=== PATIENT | female | born 1955 | race African-American/Black ===

== ENCOUNTER → 2017-08-05 | Outpatient (CLI) | payer OTHER ==
--- NOTE | 2017-08-05 15:59 | WOMENS IMAGING REPORT ---
EXAM DESCRIPTION: BILAT SCREENING MAMMO W/CAD COMPLETED DATE/TIME: 08/05/2017 1:59 pm REASON FOR STUDY: ROUTINE SCREENING; Z12.31 Z12.31 ENCNTR SCREEN MAMMOGRAM FOR MALIGNANT NEOPLASM O F SUMAN[place] COMPARISON: 04/12/2016 TECHNIQUE: Standard craniocaudal and mediolateral oblique views of each breast recorded using Ininala l acquisition. LIMITATIONS: None. FINDINGS: Findings present which are benign by mammographic criteria. No suspicious masses, calcifi cations or architectural distortion. Pertinent benign findings: Benign skin and breast parenchymal calcifications of the right Read with the assistance of CAD. .[facility] - R2 Cenova Version 1.3 .[facility] Imaging - R2 Cenova Version 1.3 .[facility] Imaging - R2 Cenova Version 2.4 .[facility] [place] - R2 Cenova Version 2.4 .[facility] - R2 [employer] Version 9.2 Benign mammographic findings may include one or more of the following: Smooth masses, popcorn/rim/co arse calcifications, asymmetries, post-procedure changes, and lesions with long-standing stability. IMPRESSION: BENIGN MAMMOGRAPHIC FINDINGS. BIRADS 2 BREAST DENSITY: b. There are scattered areas of fibroglandular density. BIRAD: 2 BENIGN FINDING(S) RECOMMENDATION: ROUTINE SCREENING Please consider bilateral screening tomosynthesis in July 2018 COMMENT: The patient has been notified of the results by letter per SA requirements. Additional no tification policies are in place for contacting patient with suspicious or incomplete findings. Quality ID #[id number]: The [employer] [place] [employer] recommends an annual screening mammogram for women aged 40 years or over. This facility utilizes a reminder system to ensure that all patients receive reminder letters, and/or direct phone calls for appointments. This includes reminders for routine scr eening mammograms, diagnostic mammograms, or other Breast Imaging Interventions when appropriate. Th is patient will be placed in the appropriate reminder system. The [place] [employer] (ACR) has developed recommendations for screening MRI of the breast s in certain patient populations, to be used in conjunction with mammography. Breast MRI surveillanc e may be appropriate for women with more than 20% lifetime risk of developing breast cancer as deter mined by genetic testing, significant family history of the disease, or history of mantle radiation f or Hodgkins Disease. ACR Practice Guidelines 2008. TECHNICAL DOCUMENTATION: FINDING NUMBER: (1) ASSESSMENT: (1) JOB ID: [id number] [employer]- All Rights Reserved
== END ==
LOC: WI 13:10
PROVIDERS: ATTEND Clinical Nurse Specialist Adult Health
DX: Z12.31 Encounter for screening mammogram for malignant neoplasm of breast (principal)
CPT/HCPCS: 77067

== ENCOUNTER 2017-09-13 08:51 | Inpatient (IN) | payer OTHER, MEDICARE ==
[2017-09-13] MEDS ORDERED: NORMAL SALINE 1000 ML 1,000 ML IV ONE ×2 (09:40→10:48)
[2017-09-13] MEDS ORDERED: PIPERACILLIN/TAZOBACTAM 4.5 GM VIAL IV ONE (09:40)
--- NOTE | 2017-09-13 09:50 | ER Document Report ---
ED Medical Screen (RME) - General Chief Complaint: Chest Pain Stated Complaint: CHEST PAIN, SHORTNESS OF BREATH Time Seen by Provider: 09/13/17 09:40 Notes: Patient states that she started with a toothache on Wednesday and this has now caused her to have swelling of her lips and tongue. She states she is having some trouble breathing. She also feels nauseated and has a mild cough. She states that her tongue lips and mouth are very sore. TRAVEL OUTSIDE OF THE [place] IN LAST 30 DAYS: No - Related Data Allergies/Adverse Reactions: Sulfa (Sulfonamide Antibiotics) Allergy (Unknown, Verified 09/13/17 08:52) peach [[place]] Adverse Reaction (Verified 09/13/17 08:52) RASH Past Medical History - Social History Frequency of alcohol use: None Drug Abuse: None - Past Medical History Cardiac Medical History: Reports: Hx Hypercholesterolemia, Hx Hypertension Endocrine Medical History: Reports: Hx Diabetes Mellitus Type 2 Renal/ Medical History: Denies: Hx Peritoneal Dialysis Musculoskeltal Medical History: Reports Hx Arthritis Past Surgical History: Reports: Hx Hysterectomy - partial. Denies: Hx Pacemaker - Immunizations Hx Diphtheria, Pertussis, Tetanus Vaccination: No Physical Exam - Vital signs Vitals: Temp Pulse Resp BP Pulse Ox 100.1 F 106 H 20 141/94 H 92 09/13/17 09:08 09/13/17 09:08 09/13/17 09:08 09/13/17 09:08 09/13/17 09:08 Course - Vital Signs Vital signs: Temp Pulse Resp BP Pulse Ox 100.1 F 106 H 20 141/94 H 92 09/13/17 09:08 09/13/17 09:08 09/13/17 09:08 09/13/17 09:08 09/13/17 09:08
[2017-09-13 10:17] LABS: ABSOLUTE BASOPHILS # (AUTO) 0.1 10^3/uL (0.0-0.2); ABSOLUTE LYMPHOCYTES (AUTO) 1.7 10^3/uL (0.5-4.7); ABSOLUTE MONOCYTES (AUTO) 0.6 10^3/uL (0.1-1.4); ABSOLUTE NEUT (AUTO) 8.1 10^3/uL (1.7-8.2); BASOPHILS % (AUTO) 0.8 % (0-2); EOSINOPHILS % (AUTO) 0.3 % (0-6); HEMATOCRIT 39.3 % (36.0-47.0); HEMOGLOBIN 12.1 g/dL (12.0-15.5); LYMPHOCYTES % (AUTO) 15.9 % (13-45); MEAN CORPUSCULAR HEMOGLOBIN 22.2 pg (27.0-33.4); MEAN CORPUSCULAR HGB CONC 30.8 g/dL (32.0-36.0); MEAN CORPUSCULAR VOLUME 72 fl (80-97); MONOCYTES % (AUTO) 5.6 % (3-13); PLATELET COUNT 251 10^3/uL (150-450); RED BLOOD COUNT 5.46 10^6/uL (3.72-5.28); RED CELL DISTRIBUTION WIDTH 14.8 % (11.5-14.0); SEGMENTED NEUTROPHILS % (AUTO) 77.4 % (42-78); TOTAL CELLS COUNTED % (AUTO) 100 %; WHITE BLOOD COUNT 10.4 10^3/uL (4.0-10.5)
[2017-09-13 10:18] LABS: VENOUS BLOOD BASE EXCESS 6.8 mmol/L; VENOUS BLOOD HCO3 33.3 mmol/L (20-32); VENOUS BLOOD PCO2 55.6 mmHg (35-63); VENOUS BLOOD PH 7.4 (7.30-7.42)
--- NOTE | 2017-09-13 10:25 | RADIOLOGY REPORT (SQ) ---
EXAM DESCRIPTION: CHEST SINGLE VIEW COMPLETED DATE/TIME: 09/13/2017 10:09 am REASON FOR STUDY: cough/fever COMPARISON: 05/22/2016 EXAM PARAMETERS: NUMBER OF VIEWS: One view. TECHNIQUE: Single frontal radiographic view of the chest acquired. RADIATION DOSE: NA LIMITATIONS: None. FINDINGS: LUNGS AND PLEURA: No opacities, masses or pneumothorax. No pleural effusion. MEDIASTINUM AND HILAR STRUCTURES: No masses. Contour normal. HEART AND VASCULAR STRUCTURES: Heart normal in size. Normal vasculature. BONES: No acute findings. HARDWARE: None in the chest. OTHER: No other significant finding. IMPRESSION: NO ACUTE RADIOGRAPHIC FINDING IN THE CHEST. TECHNICAL DOCUMENTATION: JOB ID: [id number] [employer]- All Rights Reserved
[2017-09-13 10:42] LABS: ALANINE AMINOTRANSFERASE 21 U/L (9-52); ALBUMIN 4.2 g/dL (3.5-5.0); ALKALINE PHOSPHATASE 105 U/L (38-126); ANION GAP 9 (5-19); ASPARTATE AMINO TRANSFERASE 12 U/L (14-36); BILIRUBIN,DIRECT 0.4 mg/dL (0.0-0.4); BILIRUBIN,TOTAL 0.4 mg/dL (0.2-1.3); BLOOD UREA NITROGEN 6 mg/dL (7-20); CALCIUM 9.8 mg/dL (8.4-10.2); CARBON DIOXIDE 31 mmol/L (22-30); CHLORIDE 99 mmol/L (98-107); GLUCOSE 141 mg/dL (75-110); POTASSIUM 3.6 mmol/L (3.6-5.0); SODIUM 138.9 mmol/L (137-145); TOTAL PROTEIN 7.5 g/dL (6.3-8.2)
--- NOTE | 2017-09-13 10:46 | ER Document Report ---
ED General - General Mode of Arrival: Ambulatory Information source: Patient TRAVEL OUTSIDE OF THE [place] IN LAST 30 DAYS: No <MUNIR AMBRIZ - Last Filed: 09/13/17 13:31> <RADHA LEIVA - Last Filed: 09/14/17 09:30> - General Chief Complaint: Chest Pain Stated Complaint: CHEST PAIN, SHORTNESS OF BREATH Time Seen by Provider: 09/13/17 09:40 Notes: Patient is a 62 year old female with a history of migraines and diabetes presents to the emergency department complaining of multiple symptoms including chest pain and shortness of breath onset this morning, swelling to her face, blurry vision, headaches, nausea, and vomiting onset 3 days ago. Patient states she woke up this morning with non radiating chest pain on the left side. Patient states the pain is intermittent and describes it as a squeezing. Patient states her swelling and other symptoms was onset 3 days ago due to a toothache but has since worsened. Patient states she is unable to swallow like normal and was unable to take any Tylenol for her migraines this morning. Patient denies any hematemesis or a history of [place], or strokes. Patient states she takes Metformin for her diabetes. (MUNIR AMBRIZ) - Related Data Allergies/Adverse Reactions: Sulfa (Sulfonamide Antibiotics) Allergy (Unknown, Verified 09/13/17 08:52) peach [[place]] Adverse Reaction (Verified 09/13/17 08:52) RASH Past Medical History - General Information source: Patient - Social History Smoking Status: Never Smoker Frequency of alcohol use: None Drug Abuse: None Family History: Reviewed & Not Pertinent Patient has suicidal ideation: No Patient has homicidal ideation: No - Past Medical History Cardiac Medical History: Reports: Hx Hypercholesterolemia, Hx Hypertension Endocrine Medical History: Reports: Hx Diabetes Mellitus Type 2 Musculoskeltal Medical History: Reports Hx Arthritis Past Surgical History: Reports: Hx Hysterectomy - Immunizations Hx Diphtheria, Pertussis, Tetanus Vaccination: No Hx Pneumococcal Vaccination: 07/26/10 <MUNIR AMBRIZ - Last Filed: 09/13/17 13:31> Review of Systems - Review of Systems Constitutional: No symptoms reported EENT: See HPI Cardiovascular: See HPI, Chest pain Respiratory: See HPI, Short of breath Gastrointestinal: No symptoms reported Genitourinary: No symptoms reported Female Genitourinary: No symptoms reported Musculoskeletal: See HPI Skin: No symptoms reported Hematologic/Lymphatic: No symptoms reported Neurological/Psychological: No symptoms reported -: Yes All other systems reviewed and negative <MUNIR AMBRIZ - Last Filed: 09/13/17 13:31> Physical Exam - General General appearance: Appears well, Alert In distress: None - HEENT Head: Normocephalic Eyes: Normal Conjunctiva: Normal Pupils: PERRL Mouth/Lips: Other - Trismus. Tenderness to palpation to right submandibular area. Soft tissue swelling in the buccal area. Poor dentition. Mucous membranes: Moist Pharynx: Normal Neck: Lymphadenopathy - Respiratory Respiratory status: No respiratory distress Chest status: Nontender Breath sounds: Normal Chest palpation: Normal - Cardiovascular Rhythm: Tachycardia Heart sounds: Normal auscultation Murmur: No Friction rub: No Gallop: None auscultated - Abdominal Inspection: Normal Distension: No distension Bowel sounds: Normal Tenderness: Nontender Organomegaly: No organomegaly - Back Back: Normal - Extremities General upper extremity: Normal inspection, Normal ROM General lower extremity: Normal inspection, Normal ROM - Neurological Neuro grossly intact: Yes Cognition: Normal Orientation: AAOx4 [place] Coma Scale Eye Opening: Spontaneous [place] Coma Scale Verbal: Oriented [place] Coma Scale Motor: Obeys Commands [place] Coma Scale Total: 15 Speech: Normal - Psychological Associated symptoms: Normal affect, Normal mood - Skin Skin Temperature: Warm Skin Moisture: Dry Skin Color: Normal <MUNIR AMBRIZ - Last Filed: 09/13/17 13:31> - Vital signs Vitals: Temp Pulse Resp BP Pulse Ox 100.1 F 106 H 20 141/94 H 92 09/13/17 09:08 09/13/17 09:08 09/13/17 09:08 09/13/17 09:08 09/13/17 09:08 Course - Laboratory Result Diagrams: 09/13/17 09:55 09/13/17 09:55 - EKG Interpretation by De EKG shows normal: Sinus rhythm Rate: Tachycardia - 102 - Consults Dr. Burns Time consulted: 01:30 - Dr. Burns accepts patient to Med- Surg. <PBMUNIR - Last Filed: 09/13/17 13:31> - Laboratory Result Diagrams: 09/14/17 06:15 09/14/17 06:15 <RADHA LEIVA - Last Filed: 09/14/17 09:30> - Vital Signs Vital signs: Temp Pulse Resp BP Pulse Ox 98.4 F 79 18 132/56 H 94 09/14/17 07:32 09/14/17 07:32 09/14/17 07:32 09/14/17 07:32 09/14/17 07:32 - Laboratory Laboratory results interpreted by me: 09/13/17 09/13/17 09/13/17 09:55 09:55 09:55 RBC 5.46 H MCV 72 L MCH 22.2 L MCHC 30.8 L RDW 14.8 H VBG HCO3 33.3 H Carbon Dioxide 31 H BUN 6 L Glucose 141 H AST 12 L - EKG Interpretation by Me Additional EKG results interpreted by me: 09/13/17 11:00 Sinus Tachycardia, normal axis, normal interval, no concerning ST, depression relevant. (MUNIR AMBRIZ) Discharge - Discharge Unit Admitted: Medical Floor <MUNIR AMBRIZ - Last Filed: 09/13/17 13:31> - Discharge Admitting Provider: Delmis <RADHA LEIVA - Last Filed: 09/14/17 09:30> - Discharge Clinical Impression: Soft tissue swelling Diabetes Qualifiers: Diabetes mellitus type: type 2 Condition: Stable Disposition: ADMITTED INPATIENT Scribe Attestation: 09/14/17 09:30 I personally performed the services described documentation, reviewed and edited the documentation which was dictated to describe my presence, and it accurately records my words and actions. (RADHA LEIVA) Scribe Documentation - Scribe Written by Chaime:: Torito Joyner, 09/13/2017 10:55 acting as scribe for :: Clint <MUNIR AMBRIZ - Last Filed: 09/13/17 13:31>
[2017-09-13] MEDS ORDERED: ONDANSETRON HCL INJ/PF 4 MG/2 ML SDV IV ONE (10:47)
[2017-09-13] MEDS ORDERED: MORPHINE SULFATE 10 MG/ML INJ IV ONE (10:47)
[2017-09-13] MEDS ORDERED: VANCOMYCIN HCL INJ 1000 MG VIAL IV ONE (11:09)
[2017-09-13] MEDS ORDERED: HYDROMORPHONE HCL INJ/PF 2 MG/ML AMPULE IV ONE (11:24)
--- NOTE | 2017-09-13 12:59 | RADIOLOGY REPORT (SQ) ---
EXAM DESCRIPTION: CT CHEST WITH COMPLETED DATE/TIME: 09/13/2017 12:27 pm REASON FOR STUDY: CP with facial infection, r/o mediastinal infectio COMPARISON: None. TECHNIQUE: CT scan of the chest performed using helical scanning technique with dynamic intravenous contrast injection. Images reviewed with lung, soft tissue and bone windows. Reconstructed coronal and sagittal MPR images reviewed. All images stored on PACS. All CT scanners at this facility use dose modulation, iterative reconstruction, and/or weight based d osing when appropriate to reduce radiation dose to as low as reasonably achievable (ALARA). [facility]: Dose Right [facility]: CareDose [facility]: Dose Right [facility]: Teradose 4D [facility]: [employer] CONTRAST TYPE AND DOSE: contrast/concentration: Isovue 370.00 mg/ml; Total Contrast Delivered: 80.0 ml; Total Saline Delivered: 55.0 ml RENAL FUNCTION: Creatinine: 0.6 RADIATION DOSE: 1663.4 LIMITATIONS: None. FINDINGS: LUNGS AND PLEURA: No infiltrates or effusions. No pneumothorax. HILAR AND MEDIASTINAL STRUCTURES: Small pretracheal node. No adenopathy. HEART AND VASCULAR STRUCTURES: No aneurysm or dissection. No central pulmonary emboli. No pericardi al effusion. HARDWARE: None in the chest. UPPER ABDOMEN: Image degradation due to artifact. Left adrenal calcification. THYROID AND OTHER SOFT TISSUES: No abnormality seen. BONES: No abnormality seen. . OTHER: No other significant finding. IMPRESSION: NORMAL CT OF THE CHEST WITH IV CONTRAST. TECHNICAL DOCUMENTATION: JOB ID: [id number] Quality ID # [id number]: Final reports with documentation of one or more dose reduction techniques (e.g., Au tomated exposure control, adjustment of the mA and/or kV according to patient size, use of iterative reconstruction technique) 2010 [employer]- All Rights Reserved
--- NOTE | 2017-09-13 13:10 | RADIOLOGY REPORT (SQ) ---
EXAM DESCRIPTION: CT SOFT TISSUE NECK WITH COMPLETED DATE/TIME: 09/13/2017 12:27 pm REASON FOR STUDY: face and neck swelling COMPARISON: None. TECHNIQUE: Post IV contrasted scanning from skull base through lung apices with review of bone, soft tissue and lung windows. Reconstructed coronal and sagittal MPR images reviewed. All images stored on PACS. All CT scanners at this facility use dose modulation, iterative reconstruction, and/or weight based d osing when appropriate to reduce radiation dose to as low as reasonably achievable (ALARA). [facility]: Dose Right [facility]: CareDose [facility]: Dose Right [facility]: Teradose 4D [facility]: [employer] CONTRAST TYPE AND DOSE: Isovue 370. 80.2 mL RENAL FUNCTION: Creatinine: 0.57 RADIATION DOSE: CT Rad equipment meets quality standard of care and radiation dose reduction techniq ues were employed. CTDIvol: 16.6 - 30.0 mGy. DLP: 1663 mGy-cm. . LIMITATIONS: None. FINDINGS: SKULL BASE: Intact. MAJOR SALIVARY GLANDS: No abnormality of the parotid gland. No abnormality of the submandibular glan ds. LYMPHADENOPATHY: There are prominent submental nodes the largest measuring 12 mm. Small submandibul ar nodes noted bilaterally MUCOSAL MASSES OR ASYMMETRY: No mucosal masses or asymmetry. LARYNX/CORDS: No abnormal findings. VASCULAR STRUCTURES: Atherosclerotic change distal left common carotid artery. Otherwise, no signifi cant abnormality seen . LUNG APICES: No abnormality seen. BONES: Cervical spondylosis. THYROID: Normal size. No masses. PARANASAL SINUSES: No abnormality of the frontal, ethmoid, maxillary, and sphenoid sinuses. IMPRESSION: NO SIGNIFICANT ABNORMALITY IDENTIFIED. TECHNICAL DOCUMENTATION: JOB ID: [id number] Quality ID # [id number]: Final reports with documentation of one or more dose reduction techniques (e.g., Au tomated exposure control, adjustment of the mA and/or kV according to patient size, use of iterative reconstruction technique) 2010 [employer]- All Rights Reserved
--- NOTE | 2017-09-13 13:26 | EKG REPORT ---
SEVERITY:- BORDERLINE ECG - SINUS TACHYCARDIA BORDERLINE T ABNORMALITIES, ANTERIOR LEADS : Confirmed by: Pramod Gamble MD 13-Sep-2017 13:26:04
[2017-09-13] MEDS ORDERED: ACETAMINOPHEN 325 MG TABLET PO PRN (16:00)
[2017-09-13] MEDS ORDERED: GLUCAGON,HUMAN RECOMB 1 MG INJ SUBCUT PRN (16:00)
[2017-09-13] MEDS ORDERED: DEXTROSE 40% GEL 15 GM TUBE PO PRN ×2 (16:00)
[2017-09-13] MEDS ORDERED: DEXTROSE 50%-WATER 25 GM/50 ML DISP.SYRIN IV PRN ×2 (16:00)
[2017-09-13] MEDS ORDERED: INSULIN REG, HUMAN 100 UNIT/ML 3 ML VIAL (PYX) SUBCUT PRN (16:08)
[2017-09-13 17:02] LABS: APPEARANCE,URINE SLIGHTLY-CLOUDY; BILIRUBIN,URINE NEGATIVE (NEGATIVE); COLOR,URINE YELLOW; GLUCOSE, URINE NEGATIVE (NEGATIVE); KETONES,URINE NEGATIVE (NEGATIVE); LEUKOCYTE ESTERASE,URINE TRACE (NEGATIVE); NITRITE,URINE NEGATIVE (NEGATIVE); PROTEIN,URINE NEGATIVE (NEGATIVE); URINE SPECIFIC GRAVITY 1.049; UROBILINOGEN,URINE NEGATIVE mg/dL (<2.0)
[2017-09-13] MEDS: HYDROCHLOROTHIAZIDE 25 MG TABLET PO SCH (18:57)
--- NOTE | 2017-09-13 20:00 | PDOC H&P ---
History of Present Illness Admission Date/PCP: 09/13/17 14:37 DAVID MUNOZ MD Patient complains of: Swollen right face History of Present Illness: TEVIN BROWN is a 62 year old -[place]ian female with a past medical history significant for diabetes mellitus, hypertension who presents to the service with complaints of right-sided facial swelling. According to the patient her symptoms started on Wednesday when she awoke from sleep. She states at that time she had some chest pain that felt like it was sharp and she noticed also that she had some swelling beginning in her right neck and face. She also noted that her throat and tongue felt swollen and had a sensation of shortness of breath. The patient reports feeling nauseous this morning just before coming into the ER. She admits that she had a tooth break off a few days ago. However, she did not think anything of it. She admits to having several rotten teeth and reports exquisite pain in her mouth. She is only been able to consume ice chips down in the emergency room. She reports subjective fever and chills at home. She has not been able to take any of her medications by mouth for fear of choking. She describes her chest pain as sharp. In the emergency room the patient did have a troponin which was negative. EKG had no acute changes. CT scan of the chest was done which was negative for any acute PE. Patient also had a CT scan of the neck soft tissues which did not show any abscess. The emergency room started her on empiric Zosyn and vancomycin. Past Medical History Cardiac Medical History: Reports: Hyperlipidema, Hypertension Neurological Medical History: Reports: Migraine Endocrine Medical History: Reports: Diabetes Mellitus Type 2 Musculoskeltal Medical History: Reports: Arthritis Past Surgical History Past Surgical History: Reports: Hysterectomy Social History Information Source: Patient Smoking Status: Former Smoker Cigarettes Packs Per Day: 0.5 Frequency of Alcohol Use: Rare Hx Recreational Drug Use: No Drugs: None Hx Prescription Drug Abuse: No Past Social History Note: The patient is a former smoker. She quit in 1999. Prior to this she began smoking at the age of 18. During times of she for fitted smoking but then resumed thereafter. He drinks alcohol once a month and denies any illegal drug use. - Advance Directive Resuscitation Status: Full Code Family History Family History: DM, Hypertension Parental Family History Reviewed: Yes Children Family History Reviewed: Yes Sibling(s) Family History Reviewed.: Yes Medication/Allergy Home Medications: Acetaminophen [Tylenol Extra Strength 500 mg Tablet] 500 mg PO Q6 PRN 09/13/17 Ascorbic Acid [Vitamin C 500 mg Tablet] 500 mg PO BID 09/13/17 Aspirin [Aspirin EC] 81 mg PO DAILY 09/13/17 Ferrous Sulfate [Feosol 325 mg Tablet] 325 mg PO DAILY 09/13/17 Hydrochlorothiazide [Hydrodiuril 25 mg Tablet] 25 mg PO TID 09/13/17 Lisinopril [Prinivil 40 mg Tablet] 80 mg PO DAILY 09/13/17 Metformin HCl [Glucophage 500 mg Tablet] 500 mg PO BID 09/13/17 Methocarbamol [Robaxin 500 mg Tablet] 500 mg PO QID 09/13/17 Allergies/Adverse Reactions: Sulfa (Sulfonamide Antibiotics) Allergy (Unknown, Verified 09/13/17 08:52) peach [[place]] Adverse Reaction (Verified 09/13/17 08:52) RASH Review of Systems Review of Systems: Review of systems is pertinent for that already mentioned in the HPI. In addition to this, the patient admits to arthritic pains in her hands and left knee. She also complains of chest discomfort as described in the HPI, lightheadedness and dizziness. She denies any blood in the urine, blood in the stool, coughing up blood, throwing up blood. She denies any dysuria. She denies any diarrhea or constipation, cold or heat intolerance or unintentional weight loss. The patient states that she does not ambulate. She usually gets around by wheelchair. Physical Exam Vital Signs: Temp Pulse Resp BP Pulse Ox 100.1 F 106 H 18 138/81 H 89 L 09/13/17 09:08 09/13/17 09:08 09/13/17 18:00 09/13/17 16:00 09/13/17 18:00 GENERAL: This is a well-developed and nourished appearing obese - Georgian female resting in bed currently in no acute distress. HEENT: Normocephalic, atraumatic. Trachea is midline. Tenderness to palpation of the right upper and lower jaw. Poor dentition. Multiple rotten teeth or fragments of teeth. No obvious abscess or lesions seen on inspection of the mouth. Mellin Suzy 3. Moist mucous membranes. Lip swelling as well as right neck swelling. I do not see obvious swelling of the tongue. HEART: Regular rate and rhythm. No murmurs, rubs or gallops. LUNGS: Clear to auscultation bilaterally with equal rise and fall of the chest. ABDOMEN: Soft, obese, nontender, nondistended with normoactive bowel sounds EXTREMETIES: No clubbing, cyanosis or edema. 2+ peripheral pulses bilaterally. NEURO: Awake, alert and oriented 3. Cranial nerves II through XII are grossly intact. Strength in the lower extremities is 3 out of 5. In the upper extremities is 5 out of 5. Results Laboratory Results: 09/13/17 16:30 Urine Color YELLOW Urine Appearance SLIGHTLY-CLOUDY Urine pH 6.0 Ur Specific Lipan 1.049 Urine Protein NEGATIVE Urine Glucose (UA) NEGATIVE Urine Ketones NEGATIVE Urine Blood NEGATIVE Urine Nitrite NEGATIVE Ur Leukocyte Esterase TRACE H Urine WBC (Auto) 7 Urine RBC (Auto) 4 09/13/17 17:00 Troponin I < 0.012 Impressions: Chest X-Ray 09/13/17 09:40 IMPRESSION: NO ACUTE RADIOGRAPHIC FINDING IN THE CHEST. Soft Tissue Neck CT 09/13/17 10:48 IMPRESSION: NO SIGNIFICANT ABNORMALITY IDENTIFIED. Chest CT 09/13/17 11:05 IMPRESSION: NORMAL CT OF THE CHEST WITH IV CONTRAST. Assessment & Plan - Diagnosis (1) Soft tissue swelling Is this a current diagnosis for this admission?: Yes Plan: She has soft tissue swelling of the neck. My concern is that she has infected. Only one side of her face is affected and that is the side that is tender with the newly broken off tooth. CT scan did not show any catarina abscess. Agree with empiric antibiotics. Oral surgery is on consult today and I will ask them to come by and have a look at the patient. Continue to monitor for any sort of airway restriction. Right now the patient is satting at 100% on room air despite her sense of dyspnea. Allergic reaction certainly remains on the differential. However, the patient has not taken anything new or done anything that she can recall to result in a allergic reaction. Continue to monitor and on Solu-Medrol as appropriate. (2) Hypertension Is this a current diagnosis for this admission?: Yes Plan: Continue home medications. (3) Arthritis Is this a current diagnosis for this admission?: Yes Plan: Tylenol as needed. (4) Dyslipidemia Is this a current diagnosis for this admission?: Yes Plan: The patient is currently being monitored off statins by her PCP. She reports that she was on atorvastatin at one point. (5) Valvular heart disease Is this a current diagnosis for this admission?: Yes Plan: The patient states that she was told that 1 of her valves does not work right but does not have much more information than that. (6) Diabetes Qualifiers: Diabetes mellitus type: type 2 Is this a current diagnosis for this admission?: Yes Plan: Sliding scale insulin, before meals at bedtime blood sugar checks with diabetic diet when appropriate. (7) Chest pain Is this a current diagnosis for this admission?: Yes Plan: Troponins were negative 1. We will check another set now. I do not suspect this to be an acute coronary syndrome. Continue to monitor - Time Time Spent: 50 to 70 Minutes - Inpatient Certification Medical Necessity: Need for IV Antibiotics
[2017-09-14] MEDS: POTASSI CL 20 MEQ/D5-1/2NS 1L 1,000 ML IV PRN ×2 (00:03→15:41)
[2017-09-14 07:00] LABS: ABSOLUTE EOSINOPHILS # (AUTO) 0.1 10^3/uL (0.0-0.6); ABSOLUTE LYMPHOCYTES (AUTO) 2.5 10^3/uL (0.5-4.7); ABSOLUTE MONOCYTES (AUTO) 0.5 10^3/uL (0.1-1.4); ABSOLUTE NEUT (AUTO) 3.6 10^3/uL (1.7-8.2); BASOPHILS % (AUTO) 0.6 % (0-2); HEMATOCRIT 34.9 % (36.0-47.0); HEMOGLOBIN 10.7 g/dL (12.0-15.5); LYMPHOCYTES % (AUTO) 36.4 % (13-45); MEAN CORPUSCULAR HEMOGLOBIN 22.2 pg (27.0-33.4); MEAN CORPUSCULAR HGB CONC 30.6 g/dL (32.0-36.0); MEAN CORPUSCULAR VOLUME 72 fl (80-97); MONOCYTES % (AUTO) 7.8 % (3-13); PLATELET COUNT 206 10^3/uL (150-450); RED BLOOD COUNT 4.83 10^6/uL (3.72-5.28); RED CELL DISTRIBUTION WIDTH 14.7 % (11.5-14.0); SEGMENTED NEUTROPHILS % (AUTO) 53.2 % (42-78); TOTAL CELLS COUNTED % (AUTO) 100 %; WHITE BLOOD COUNT 6.8 10^3/uL (4.0-10.5)
[2017-09-14 07:21] LABS: ANION GAP 8 (5-19); BLOOD UREA NITROGEN 7 mg/dL (7-20); CALCIUM 9.1 mg/dL (8.4-10.2); CARBON DIOXIDE 30 mmol/L (22-30); CHLORIDE 104 mmol/L (98-107); GLUCOSE 107 mg/dL (75-110); POTASSIUM 3.6 mmol/L (3.6-5.0); SODIUM 141.8 mmol/L (137-145)
[2017-09-14] MEDS: ENOXAPARIN SODIUM INJ 40 MG/0.4 ML DISP.SYRIN SUBCUT SCH (09:43)
[2017-09-14] MEDS: ASPIRIN 81 MG TABLET, ENT COATED PO SCH (09:44)
[2017-09-14] MEDS: LISINOPRIL 10 MG TABLET PO SCH (09:44)
[2017-09-14] MEDS: HYDROCHLOROTHIAZIDE 25 MG TABLET PO SCH ×3 (09:44→17:05)
--- NOTE | 2017-09-14 13:01 | PDOC CONSULTATION ---
Consultation Consult Date: 09/14/17 Attending physician:: TED GIVENS Consult reason:: Patient with necrotic tooth # 27 and associated facial/ vestibular swelling. History of Present Illness Admission Date/PCP: 09/13/17 14:37 DAVID MUNOZ MD Patient complains of: Pain and swelling lower right tooth #27 History of Present Illness: Pt complains of pain and swelling in lower jaw and was seem in the ED 09/13/2017 in the evening. Due to the patient's medical history of diabetes and reported chest pain she was admitted for observation and OMFS consultation. Pt presents with swelling and pain from necrotic tooth #27 with positive intra-oral drainage from associated vestibular abscess. Past Medical History Cardiac Medical History: Reports: Hyperlipidema, Hypertension Neurological Medical History: Reports: Migraine Endocrine Medical History: Reports: Diabetes Mellitus Type 2 Musculoskeltal Medical History: Reports: Arthritis Psychiatric Medical History: Denies: Depression Past Surgical History Past Surgical History: Reports: Hysterectomy Denies: Pacemaker Social History Smoking Status: Former Smoker Cigarettes Packs Per Day: 0.5 Number of Years Smokin Frequency of Alcohol Use: Rare Hx Recreational Drug Use: No Drugs: None Hx Prescription Drug Abuse: No - Advance Directive Resuscitation Status: Full Code Family History Family History: DM, Hypertension Parental Family History Reviewed: Yes Children Family History Reviewed: Yes Sibling(s) Family History Reviewed.: Yes Medication/Allergy Home Medications: Acetaminophen [Tylenol Extra Strength 500 mg Tablet] 500 mg PO Q6 PRN 09/13/17 Ascorbic Acid [Vitamin C 500 mg Tablet] 500 mg PO BID 09/13/17 Aspirin [Aspirin EC] 81 mg PO DAILY 09/13/17 Ferrous Sulfate [Feosol 325 mg Tablet] 325 mg PO DAILY 09/13/17 Hydrochlorothiazide [Hydrodiuril 25 mg Tablet] 25 mg PO TID 09/13/17 Lisinopril [Prinivil 40 mg Tablet] 80 mg PO DAILY 09/13/17 Metformin HCl [Glucophage 500 mg Tablet] 500 mg PO BID 09/13/17 Methocarbamol [Robaxin 500 mg Tablet] 500 mg PO QID 09/13/17 Allergies/Adverse Reactions: Sulfa (Sulfonamide Antibiotics) Allergy (Unknown, Verified 09/13/17 08:52) peach [[place]] Adverse Reaction (Verified 09/13/17 08:52) RASH Review of Systems Nose, Mouth, and Throat: PRESENT: mouth pain - necrotic tooth #27 with associated vestibular abscess Physical Exam Vital Signs: Temp Pulse Resp BP Pulse Ox 98.5 F 84 17 126/70 H 99 09/14/17 11:32 09/14/17 11:32 09/14/17 11:32 09/14/17 11:32 09/14/17 11:32 Intake & Output 09/13/17 09/14/17 09/15/17 06:59 06:59 06:59 Intake Total 525 Balance 525 Weight 172.3 kg Head exam: PRESENT: other - mandibular right vestibular abscess associated with necrotic tooth #27 Teeth exam: PRESENT: dental caries, dental tenderness, poor dentation, other - necrotic tooth #27 with associated abscess Results Laboratory Results: 09/14/17 06:15 09/14/17 06:15 09/13/17 09/14/17 09/14/17 16:30 06:15 06:15 WBC 6.8 RBC 4.83 Hgb 10.7 L Hct 34.9 L MCV 72 L MCH 22.2 L MCHC 30.6 L RDW 14.7 H Plt Count 206 Seg Neutrophils % 53.2 Lymphocytes % 36.4 Monocytes % 7.8 Eosinophils % 2.0 Basophils % 0.6 Absolute Neutrophils 3.6 Absolute Lymphocytes 2.5 Absolute Monocytes 0.5 Absolute Eosinophils 0.1 Absolute Basophils 0.0 Sodium 141.8 Potassium 3.6 Chloride 104 Carbon Dioxide 30 Anion Gap 8 BUN 7 Creatinine 0.63 Est GFR ( Amer) > 60 Est GFR (Non-Af Amer) > 60 Glucose 107 Calcium 9.1 Magnesium 1.9 Urine Color YELLOW Urine Appearance SLIGHTLY-CLOUDY Urine pH 6.0 Ur Specific [place] 1.049 Urine Protein NEGATIVE Urine Glucose (UA) NEGATIVE Urine Ketones NEGATIVE Urine Blood NEGATIVE Urine Nitrite NEGATIVE Ur Leukocyte Esterase TRACE H Urine WBC (Auto) 7 Urine RBC (Auto) 4 09/13/17 17:00 Troponin I < 0.012 Impressions: Chest X-Ray 09/13/17 09:40 IMPRESSION: NO ACUTE RADIOGRAPHIC FINDING IN THE CHEST. Soft Tissue Neck CT 09/13/17 10:48 IMPRESSION: NO SIGNIFICANT ABNORMALITY IDENTIFIED. Chest CT 09/13/17 11:05 IMPRESSION: NORMAL CT OF THE CHEST WITH IV CONTRAST. Assessment & Plan - Time Time Spent: 30 to 50 Minutes Medications reviewed and adjusted accordingly: Yes Anticipated discharge: Home Within: Other - Per hospitalist Disposition: Patient with severely abscessed tooth #27 and associated abscess possibly complicated by her diabetes. - Inpatient Certification Based on my medical assessment, after consideration of the patient's comorbidities, presenting symptoms, or acuity I expect that the services needed warrant INPATIENT care.: Yes I certify that my determination is in accordance with my understanding of Medicare's requirements for reasonable and necessary INPATIENT services [42 CFR 412.3e].: Yes Medical Necessity: Risk of Diagnosis Which Will Require Inpatient Eval/Care/ Monitoring - Per hospitalist; patient with diabetes and additional comorbities per IM Post Hospital Care: Other - Patient to come to [facility] for extraction of tooth #27 and I&D - Plan Summary Plan Summary: Would recommend IV antibiotics prior to discharge, then oral antibiotics post discharge for 10 days. Would recommend Augmentin 875 mg BID x 10 days. Patient needs extraction of tooth #27 and I&D of lower right vestibule [place]. I recognize no airway embarrassment at this time but if patient experiences any issue with breathing, speaking or swallowing would advise a CT with and without contrast to r/o any deep neck and to identify all fascial planes of involvement. If a lengthy hospital stay is anticipated then I & D could be performed in the [facility] [place], If patient's blood sugar can be stabilized in the next 24-48 hrs than the patient can be referred to our office immediately upon discharge for the scheduled procedure in a more advisable setting. Our office address is [address] [place] [address]. Our phone is [phone].
[2017-09-14] MEDS: OXYCODONE-ACETAMINOPHEN 5-325 MG TABLET PO PRN ×2 (17:04→23:40)
--- NOTE | 2017-09-14 18:02 | PDOC PROGRESS REPORT ---
Subjective Progress Note for:: 09/14/17 Subjective:: Patient complains of fluid like sensation affecting her left lower leg. Patient also states that she had chest discomfort earlier today. Patient also reports that her gum is producing purulent drainage from site of broken tooth. Spoke with Dr. Alba who states that he is planning to try to manage patient as outpatient however stated that if to 4 since he would do procedure here. Did inform patient that she did have CT of face and neck to evaluate for infection affecting the fascial planes. Reason For Visit: FACIAL SWELLING,DYSPENEA, AND CHEST PAIN Physical Exam Vital Signs: Temp Pulse Resp BP Pulse Ox 98.8 F 86 17 132/79 H 99 09/14/17 15:32 09/14/17 15:32 09/14/17 15:32 09/14/17 15:32 09/14/17 15:32 Intake & Output 09/13/17 09/14/17 09/15/17 06:59 06:59 06:59 Intake Total 525 Output Total 1800 Balance 525 -1800 Weight 172.3 kg General appearance: PRESENT: no acute distress, well-developed, well-nourished Head exam: PRESENT: atraumatic, normocephalic Eye exam: PRESENT: conjunctiva pink, EOMI. ABSENT: scleral icterus Ear exam: PRESENT: normal external ear exam Mouth exam: PRESENT: moist, tongue midline Neck exam: ABSENT: carotid bruit, JVD, lymphadenopathy, thyromegaly Respiratory exam: PRESENT: clear to auscultation nini. ABSENT: rales, rhonchi, wheezes Cardiovascular exam: PRESENT: RRR. ABSENT: diastolic murmur, rubs, systolic murmur Pulses: PRESENT: normal dorsalis pedis pul Vascular exam: PRESENT: normal capillary refill GI/Abdominal exam: PRESENT: normal bowel sounds, soft. ABSENT: distended, guarding, mass, organolmegaly, rebound, tenderness Rectal exam: PRESENT: deferred Extremities exam: PRESENT: other - Positive for tenderness over the left SI joint. ABSENT: calf tenderness, clubbing, pedal edema Musculoskeletal exam: PRESENT: other - + for tenderness over the left SI Joint. Neurological exam: PRESENT: alert, awake, oriented to person, oriented to place , oriented to time, oriented to situation, CN II-XII grossly intact. ABSENT: motor sensory deficit Psychiatric exam: PRESENT: appropriate affect, normal mood. ABSENT: homicidal ideation, suicidal ideation Skin exam: PRESENT: dry, intact, warm. ABSENT: cyanosis, rash Results Laboratory Results: 09/14/17 06:15 09/14/17 06:15 09/14/17 09/14/17 06:15 06:15 WBC 6.8 RBC 4.83 Hgb 10.7 L Hct 34.9 L MCV 72 L MCH 22.2 L MCHC 30.6 L RDW 14.7 H Plt Count 206 Seg Neutrophils % 53.2 Lymphocytes % 36.4 Monocytes % 7.8 Eosinophils % 2.0 Basophils % 0.6 Absolute Neutrophils 3.6 Absolute Lymphocytes 2.5 Absolute Monocytes 0.5 Absolute Eosinophils 0.1 Absolute Basophils 0.0 Sodium 141.8 Potassium 3.6 Chloride 104 Carbon Dioxide 30 Anion Gap 8 BUN 7 Creatinine 0.63 Est GFR ( Amer) > 60 Est GFR (Non-Af Amer) > 60 Glucose 107 Calcium 9.1 Magnesium 1.9 09/13/17 17:00 Troponin I < 0.012 Impressions: Chest X-Ray 09/13/17 09:40 IMPRESSION: NO ACUTE RADIOGRAPHIC FINDING IN THE CHEST. Soft Tissue Neck CT 09/13/17 10:48 IMPRESSION: NO SIGNIFICANT ABNORMALITY IDENTIFIED. Chest CT 09/13/17 11:05 IMPRESSION: NORMAL CT OF THE CHEST WITH IV CONTRAST. Assessment & Plan - Diagnosis (1) Dental abscess Is this a current diagnosis for this admission?: Yes Plan: Patient was given vancomycin and Zosyn in the ED. Patient was placed on clindamycin 900 mg IV every [address] Alba is following patient closely. Patient did have CT of face and neck and no evidence of infection extending into those areas (2) Sciatica Qualifiers: Laterality: left Qualified Code(s): M54.32 - Sciatica, left side Is this a current diagnosis for this admission?: Yes Plan: We will write for Lidoderm patch and have recommended that patient be out of bed to chair. (3) Musculoskeletal chest pain Is this a current diagnosis for this admission?: Yes Plan: Patient with tenderness to palpation of chest wall in multiple areas. Patient' s complaint of chest pain most likely is atypical. She has had 2 sets of normal troponins will check 2D echo will have cardiology evaluate patient due to patient possibly requiring surgery. (4) Chest pain Is this a current diagnosis for this admission?: Yes Plan: Troponins negative. Will check 2D echo. Will consult cardiology. (5) Morbid obesity with BMI of 50.0-59.9, adult Is this a current diagnosis for this admission?: Yes Plan: We will encourage dietary changes. Patient is grossly obese with BMI of 61.3 kg /m. (6) Diabetes type 2, controlled Is this a current diagnosis for this admission?: Yes Plan: We will check hemoglobin A1c. Will continue SSI. (7) DVT prophylaxis Is this a current diagnosis for this admission?: Yes Plan: Lovenox. - Time Time Spent with patient: 15-24 minutes
--- NOTE | 2017-09-14 19:50 | PDOC CONSULTATION ---
Consultation Consult Date: 09/14/17 Attending physician:: JHONATAN LAWSON Consult reason:: Chest pain History of Present Illness Admission Date/PCP: 09/13/17 14:37 DAVID MUNOZ MD Patient complains of: Chest pain and tooth pain History of Present Illness: Pt complains of pain and swelling in lower jaw and was seem in the ED 09/13/2017 in the evening. Due to the patient's medical history of diabetes and reported chest pain she was admitted for observation and OMFS consultation. Pt presents with swelling and pain from necrotic tooth #27 with positive intra-oral drainage from associated vestibular abscess. Patient on questioning admitted to having some chest discomfort. This is nonexertional. This would last a few minutes. Patient does have significant cardiac risk factors. Patient not able to exert much. Patient claims history of valvular heart disease and heart murmur but could not elaborate it much further. Patient also has noted some recent weight gain. Past Medical History Cardiac Medical History: Reports: Hyperlipidema, Hypertension Neurological Medical History: Reports: Migraine Endocrine Medical History: Reports: Diabetes Mellitus Type 2 Musculoskeltal Medical History: Reports: Arthritis Psychiatric Medical History: Denies: Depression Past Surgical History Past Surgical History: Reports: Hysterectomy Denies: Pacemaker Social History Information Source: Patient Smoking Status: Former Smoker Cigarettes Packs Per Day: 0.5 Number of Years Smokin Frequency of Alcohol Use: Rare Hx Recreational Drug Use: No Drugs: None Hx Prescription Drug Abuse: No - Advance Directive Resuscitation Status: Full Code Family History Family History: DM, Hypertension Parental Family History Reviewed: Yes Children Family History Reviewed: Yes Sibling(s) Family History Reviewed.: Yes Medication/Allergy Home Medications: Acetaminophen [Tylenol Extra Strength 500 mg Tablet] 500 mg PO Q6 PRN 09/13/17 Ascorbic Acid [Vitamin C 500 mg Tablet] 500 mg PO BID 09/13/17 Aspirin [Aspirin EC] 81 mg PO DAILY 09/13/17 Ferrous Sulfate [Feosol 325 mg Tablet] 325 mg PO DAILY 09/13/17 Hydrochlorothiazide [Hydrodiuril 25 mg Tablet] 25 mg PO TID 09/13/17 Lisinopril [Prinivil 40 mg Tablet] 80 mg PO DAILY 09/13/17 Metformin HCl [Glucophage 500 mg Tablet] 500 mg PO BID 09/13/17 Methocarbamol [Robaxin 500 mg Tablet] 500 mg PO QID 09/13/17 Clindamycin HCl 300 mg PO Q6 #80 capsule 09/17/17 Lidocaine [Lidoderm 5% (700 mg) Transdermal Patch] 2 patch TP DAILY #20 adh..patch 09/17/17 Oxycodone HCl/Acetaminophen [Percocet 5-325 mg Tablet] 1 tab PO Q4HP PRN #15 tablet 09/17/17 Allergies/Adverse Reactions: Sulfa (Sulfonamide Antibiotics) Allergy (Unknown, Verified 09/13/17 08:52) peach [[place]] Adverse Reaction (Verified 09/13/17 08:52) RASH Review of Systems Review of Systems: Please see history of present illness and past medical history as wall. Constitutional: No fever or chills reported. Low-grade fever reported. Head : No recent chronic headaches, recent head injury. Eyes: No recent eye pain, diplopia, redness, discharge, acute visual changes. Ears: No recent chronic ear pain, acute hearing loss, ear discharge. Oral cavity: Dental caries and intraoral oral swelling reported. Neck: No recent acute neck pain reported. Hematologic: No recent easy bruising or bleeding or hematologic malignancy reported. Lymphatic: No recent lymphatic malignancy, chronic lymphadenopathy reported yet Cardiovascular system review: See history of present illness. Respiratory system review: No recent chronic cough, hemoptysis, blood clots in the lungs reported. Mild Shortness of breath on exertion Gastrointestinal system review: Negative for any recent acute or chronic abdominal pain, hematemesis, melena, recent change in bowel habits. Genitourinary system review: No recent acute or chronic hematuria, flank pain, UTI etc. reported. Skin system review: Negative for any recent abnormal bruising, no rash, no pruritus reported. Neurologic: No prior history of strokes, mini strokes, seizure disorder. Psychologic: No history of major psychosis or major depression reported. Musculoskeletal: Minor aches and pains reported. No acute joint swelling reported. Endocrine: No recent polyuria, polydipsia, recent heat or cold intolerance. Physical Exam Vital Signs: Temp Pulse Resp BP Pulse Ox 98.8 F 86 17 132/79 H 99 09/14/17 15:32 09/14/17 15:32 09/14/17 15:32 09/14/17 15:32 09/14/17 15:32 Intake & Output 09/13/17 09/14/17 09/15/17 06:59 06:59 06:59 Intake Total 525 900 Output Total 1800 Balance 525 -900 Weight 172.3 kg 172.3 kg Exam: GENERAL: well-nourished and in no acute distress. Alert and oriented x3 HEAD: Atraumatic, normocephalic. EYES: Pupils equal round and reactive to light, extraocular movements intact, sclera anicteric, conjunctiva are normal. ENT: TMs normal, nares patent, oropharynx clear without exudates. Moist mucous membranes. No oral ulcerations or bleeding gums noted NECK: supple without lymphadenopathy. Trachea is central. No cervical or axillary lymphadenopathy noted. Carotids are 2+, JVD WNL LUNGS: Respiration seems nonlabored, no significant accessory muscle action noted. Breath sounds clear to auscultation bilaterally and equal noted. No wheezes rales or rhonchi noted. No significant dullness noted on percussion. CHEST: Palpation of the chest wall shows no significant chest wall tenderness. No other significant abnormalities noted. HEART: [place] ERP PM, No PSH, 1/6 KENDAL aortic area, 1/6 hanna systolic murmur mitral area, no rubs, no gallops. ABDOMEN: Soft, no significant tenderness appreciated, normoactive bowel sounds. No guarding, no rebound. No rigidity noted . No masses appreciated. EXTREMITIES: Pedal pulses are 1-2+, no calf tenderness noted. No clubbing or cyanosis.trace to 1+ pedal edema noted NEUROLOGICAL: Focused neurological exam showed no significant neurologic deficit. Normal speech, no focal weakness appreciated. PSYCH: Normal mood, normal affect. Judgment and insight within normal limits. SKIN: No significant ecchymosis, rash, ulcerations or signs of pruritus noted. MUSCULOSKELETAL EXAM: No significant joint swelling noted. Results Laboratory Results: 09/14/17 06:15 09/14/17 06:15 09/14/17 09/14/17 06:15 06:15 WBC 6.8 RBC 4.83 Hgb 10.7 L Hct 34.9 L MCV 72 L MCH 22.2 L MCHC 30.6 L RDW 14.7 H Plt Count 206 Seg Neutrophils % 53.2 Lymphocytes % 36.4 Monocytes % 7.8 Eosinophils % 2.0 Basophils % 0.6 Absolute Neutrophils 3.6 Absolute Lymphocytes 2.5 Absolute Monocytes 0.5 Absolute Eosinophils 0.1 Absolute Basophils 0.0 Sodium 141.8 Potassium 3.6 Chloride 104 Carbon Dioxide 30 Anion Gap 8 BUN 7 Creatinine 0.63 Est GFR ( Amer) > 60 Est GFR (Non-Af Amer) > 60 Glucose 107 Calcium 9.1 Magnesium 1.9 09/13/17 17:00 Troponin I < 0.012 EKG Comments: Sinus rhythm without any acute ST-T wave changes noted Impressions: Chest X-Ray 09/13/17 09:40 IMPRESSION: NO ACUTE RADIOGRAPHIC FINDING IN THE CHEST. Soft Tissue Neck CT 09/13/17 10:48 IMPRESSION: NO SIGNIFICANT ABNORMALITY IDENTIFIED. Chest CT 09/13/17 11:05 IMPRESSION: NORMAL CT OF THE CHEST WITH IV CONTRAST. Assessment & Plan - Diagnosis (1) Chest pain Qualifiers: Chest pain type: unspecified Qualified Code(s): R07.9 - Chest pain, unspecified Is this a current diagnosis for this admission?: Yes (2) Dental abscess Is this a current diagnosis for this admission?: Yes (3) Diabetes Qualifiers: Diabetes mellitus type: type 2 Diabetes mellitus complication status: with unspecified complications Diabetes mellitus skilled nursing insulin use: unspecified skilled nursing insulin use status Qualified Code(s): E11.8 - Type 2 diabetes mellitus with unspecified complications Is this a current diagnosis for this admission?: Yes (4) Dyslipidemia Is this a current diagnosis for this admission?: Yes (5) Obesity Qualifiers: Obesity type: unspecified obesity type Obesity classification: unspecified obesity classification Is this a current diagnosis for this admission?: Yes (6) Hypertension Qualifiers: Hypertension type: essential hypertension Qualified Code(s): I10 - Essential (primary) hypertension Is this a current diagnosis for this admission?: Yes (7) Valvular heart disease Is this a current diagnosis for this admission?: Yes - Notes Notes: Chest pain: Patient has some typical and atypical features of chest pain. Cardiac enzymes so far has been negative. Electrocardiogram did not show any definitive ST segment changes. Multiple differential diagnoses exist in this patient. In descending order of probability this includes underlying coronary artery disease, gastroesophageal reflux, musculoskeletal pain, referred pain from elsewhere, anxiety panic disorder etc.Patient has significant cardiac risk factors, which indicates that there is a intermediate probability of chest discomfort coming from underlying CAD. Feel that it would need to be evaluated further. Discussed evaluation to assess this. In this regard risk benefits of nuclear stress test and other alternative processes were discussed in detail. The patient prefers to undergo nuclear stress test. The small risk of radiation , myocardial infarction, , cardiac arrhythmias, respiratory distress etc. were discussed. Patient understood the risks and gave informed consent. Nuclear stress test was therefore scheduled. For risk evaluation, patient is also being scheduled for a 2-D echocardiogram. Patient questions were answered. Diabetes: Recommend good control of blood sugar. However should avoid any hypoglycemia. Preferred agent for blood pressure control with the DARYA inhibitor or angiotensin receptor blockers. Patient encouraged with low carbohydrate, low cholesterol diet and also regular walking program. Discussed that good control of blood sugar would reduce risk of future microvascular and macrovascular complications. Hypertension: Blood pressure goal in this patient is 135/85 or less. This was discussed with the patient. Currently blood pressure under reasonable control. Better medication for this patient are DARYA inhibitor/ARB/beta erin etc. discussed side effects of uncontrolled hypertension and also severe hypotension. Hyperlipidemia: LDL goal is less than 70. Recommend statin therapy at least intermediate or high dose, of high potency status. Periodic lipid panel and liver panel is indicated. Patient to report any significant muscle discomfort or other side effects. Obesity: Discussed adverse effect of overweight/obesity on cardiovascular event rate, sleep apnea, diabetes and hypertension et cetera. Patient has been recommended weight loss. Patient advised in weight loss. In this regard portion control, substitution, calorie restriction and regular exercise plan discussed. Patient informed that I would be happy to help for outpatient management of weight loss. Risk associated with being overweight and obesity discussed. This included both mechanical and metabolic complications. Dental abscess: Patient being seen by oral surgeon. Continue antibiotic therapy. - Time Time Spent: 30 to 50 Minutes - CODE STATUS was discussed, patient remains full code. Surrogate decision-maker unchanged. Multiple medical problems were addressed. More than 50% of the time spent coordinating care, discussing management plans with involved caregivers. Management plans discussed with involved personnels. Medical decision making was of moderate to high complexity , patient's has multiple comorbidities. Medications reviewed and adjusted accordingly: Yes
[2017-09-14] MEDS: CLINDAMYCIN 900 MG/D5W RTU 50 ML IV SCH (21:52)
[2017-09-15] MEDS: CLINDAMYCIN 900 MG/D5W RTU 50 ML IV SCH ×3 (05:23→22:08)
[2017-09-15 07:07] LABS: ALANINE AMINOTRANSFERASE 22 U/L (9-52); ALBUMIN 3.5 g/dL (3.5-5.0); ALKALINE PHOSPHATASE 73 U/L (38-126); ANION GAP 12 (5-19); ASPARTATE AMINO TRANSFERASE 18 U/L (14-36); BILIRUBIN,DIRECT 0.2 mg/dL (0.0-0.4); BILIRUBIN,TOTAL 0.3 mg/dL (0.2-1.3); BLOOD UREA NITROGEN 5 mg/dL (7-20); CALCIUM 9.5 mg/dL (8.4-10.2); CARBON DIOXIDE 26 mmol/L (22-30); CHLORIDE 103 mmol/L (98-107); GLUCOSE 113 mg/dL (75-110); SODIUM 140.8 mmol/L (137-145); TOTAL PROTEIN 5.8 g/dL (6.3-8.2)
[2017-09-15 07:18] LABS: ABSOLUTE EOSINOPHILS # (AUTO) 0.2 10^3/uL (0.0-0.6); ABSOLUTE LYMPHOCYTES (AUTO) 2.6 10^3/uL (0.5-4.7); ABSOLUTE MONOCYTES (AUTO) 0.7 10^3/uL (0.1-1.4); ABSOLUTE NEUT (AUTO) 2.8 10^3/uL (1.7-8.2); BASOPHILS % (AUTO) 0.7 % (0-2); EOSINOPHILS % (AUTO) 3.7 % (0-6); HEMATOCRIT 35.4 % (36.0-47.0); LYMPHOCYTES % (AUTO) 40.7 % (13-45); MEAN CORPUSCULAR HEMOGLOBIN 22.4 pg (27.0-33.4); MEAN CORPUSCULAR HGB CONC 31.3 g/dL (32.0-36.0); MEAN CORPUSCULAR VOLUME 72 fl (80-97); PLATELET COUNT 173 10^3/uL (150-450); RED BLOOD COUNT 4.94 10^6/uL (3.72-5.28); RED CELL DISTRIBUTION WIDTH 14.7 % (11.5-14.0); SEGMENTED NEUTROPHILS % (AUTO) 43.9 % (42-78); TOTAL CELLS COUNTED % (AUTO) 100 %; WHITE BLOOD COUNT 6.4 10^3/uL (4.0-10.5)
[2017-09-15] MEDS: ENOXAPARIN SODIUM INJ 40 MG/0.4 ML DISP.SYRIN SUBCUT SCH (11:18)
[2017-09-15] MEDS: LISINOPRIL 10 MG TABLET PO SCH (11:21)
[2017-09-15] MEDS: HYDROCHLOROTHIAZIDE 25 MG TABLET PO SCH ×3 (11:21→18:21)
[2017-09-15] MEDS: ASPIRIN 81 MG TABLET, ENT COATED PO SCH (11:23)
[2017-09-15] MEDS: LIDOCAINE 5% (700 MG) TRANSDERMAL ADH..PATCH TP SCH (11:28)
[2017-09-15] MEDS ORDERED: AMINOPHYLLINE INJ/PF 250 MG/10 ML SDV IV ONE (14:26)
[2017-09-15] MEDS ORDERED: REGADENOSON INJ 0.4 MG/5 ML DISP.SYRIN IV ONE (14:26)
--- NOTE | 2017-09-15 16:03 | PDOC PROGRESS REPORT ---
Subjective Progress Note for:: 09/15/17 Subjective:: Pt states that she would like to eat. Reason For Visit: FACIAL SWELLING,DYSPENEA, AND CHEST PAIN Physical Exam Vital Signs: Temp Pulse Resp BP Pulse Ox 98.2 F 93 19 122/72 96 09/15/17 11:11 09/15/17 11:11 09/15/17 11:11 09/15/17 11:11 09/15/17 11:11 Intake & Output 09/14/17 09/15/17 09/16/17 06:59 06:59 06:59 Intake Total 525 2104 Output Total 3700 Balance 525 -1596 Weight 172.3 kg 172.2 kg General appearance: PRESENT: no acute distress, well-developed, well-nourished Head exam: PRESENT: atraumatic, normocephalic Eye exam: PRESENT: conjunctiva pink, EOMI. ABSENT: scleral icterus Ear exam: PRESENT: normal external ear exam Mouth exam: PRESENT: moist, tongue midline Neck exam: ABSENT: carotid bruit, JVD, lymphadenopathy, thyromegaly Respiratory exam: PRESENT: clear to auscultation nini. ABSENT: rales, rhonchi, wheezes Cardiovascular exam: PRESENT: RRR. ABSENT: diastolic murmur, rubs, systolic murmur Pulses: PRESENT: normal dorsalis pedis pul Vascular exam: PRESENT: normal capillary refill GI/Abdominal exam: PRESENT: normal bowel sounds, soft. ABSENT: distended, guarding, mass, organolmegaly, rebound, tenderness Rectal exam: PRESENT: deferred Extremities exam: PRESENT: full ROM. ABSENT: calf tenderness, clubbing, pedal edema Neurological exam: PRESENT: alert, awake, oriented to person, oriented to place , oriented to time, oriented to situation, CN II-XII grossly intact. ABSENT: motor sensory deficit Psychiatric exam: PRESENT: appropriate affect, normal mood. ABSENT: homicidal ideation, suicidal ideation Skin exam: PRESENT: dry, intact, warm. ABSENT: cyanosis, rash Results Laboratory Results: 09/15/17 05:10 09/15/17 05:10 09/15/17 09/15/17 05:10 05:10 WBC 6.4 RBC 4.94 Hgb 11.0 L Hct 35.4 L MCV 72 L MCH 22.4 L MCHC 31.3 L RDW 14.7 H Plt Count 173 Seg Neutrophils % 43.9 Lymphocytes % 40.7 Monocytes % 11.0 Eosinophils % 3.7 Basophils % 0.7 Absolute Neutrophils 2.8 Absolute Lymphocytes 2.6 Absolute Monocytes 0.7 Absolute Eosinophils 0.2 Absolute Basophils 0.0 Sodium 140.8 Potassium 4.0 Chloride 103 Carbon Dioxide 26 Anion Gap 12 BUN 5 L Creatinine 0.55 Est GFR ( Amer) > 60 Est GFR (Non-Af Amer) > 60 Glucose 113 H Calcium 9.5 Magnesium 1.9 Total Bilirubin 0.3 AST 18 ALT 22 Alkaline Phosphatase 73 Total Protein 5.8 L Albumin 3.5 09/13/17 16:30 Clean Catch Midstream Urine Culture - Final NO GROWTH 2 DAYS 09/13/17 17:00 Troponin I < 0.012 Impressions: Chest X-Ray 09/13/17 09:40 IMPRESSION: NO ACUTE RADIOGRAPHIC FINDING IN THE CHEST. Soft Tissue Neck CT 09/13/17 10:48 IMPRESSION: NO SIGNIFICANT ABNORMALITY IDENTIFIED. Chest CT 09/13/17 11:05 IMPRESSION: NORMAL CT OF THE CHEST WITH IV CONTRAST. Assessment & Plan - Diagnosis (1) Dental abscess Is this a current diagnosis for this admission?: Yes Plan: Will continue Clindamycin. (2) Sciatica Qualifiers: Laterality: left Qualified Code(s): M54.32 - Sciatica, left side Is this a current diagnosis for this admission?: Yes Plan: Will continue Lidoderm patch (3) Musculoskeletal chest pain Is this a current diagnosis for this admission?: Yes Plan: Nuclear stress test and 2 D echo pending. (4) Chest pain Qualifiers: Chest pain type: unspecified Qualified Code(s): R07.9 - Chest pain, unspecified Is this a current diagnosis for this admission?: Yes Plan: Troponins negative. 2 D Echo and Nuclear Stress test pending. (5) Morbid obesity with BMI of 50.0-59.9, adult Is this a current diagnosis for this admission?: Yes Plan: We will encourage dietary changes. Patient is grossly obese with BMI of 61.3 kg /m. (6) Diabetes type 2, controlled Is this a current diagnosis for this admission?: Yes Plan: We will check hemoglobin A1c. Will continue SSI. (7) DVT prophylaxis Is this a current diagnosis for this admission?: Yes Plan: Lovenox.
[2017-09-15] MEDS: POTASSI CL 20 MEQ/D5-1/2NS 1L 1,000 ML IV PRN (18:17)
[2017-09-15] MEDS: OXYCODONE-ACETAMINOPHEN 5-325 MG TABLET PO PRN (22:12)
[2017-09-16] MEDS: CLINDAMYCIN 900 MG/D5W RTU 50 ML IV SCH ×3 (05:05→21:43)
[2017-09-16 07:54] LABS: ABSOLUTE EOSINOPHILS # (AUTO) 0.2 10^3/uL (0.0-0.6); ABSOLUTE LYMPHOCYTES (AUTO) 2.3 10^3/uL (0.5-4.7); ABSOLUTE MONOCYTES (AUTO) 0.5 10^3/uL (0.1-1.4); ABSOLUTE NEUT (AUTO) 2.8 10^3/uL (1.7-8.2); BASOPHILS % (AUTO) 0.5 % (0-2); EOSINOPHILS % (AUTO) 3.9 % (0-6); HEMATOCRIT 37.8 % (36.0-47.0); HEMOGLOBIN 11.7 g/dL (12.0-15.5); LYMPHOCYTES % (AUTO) 39.8 % (13-45); MEAN CORPUSCULAR HEMOGLOBIN 22.3 pg (27.0-33.4); MEAN CORPUSCULAR VOLUME 72 fl (80-97); MONOCYTES % (AUTO) 7.9 % (3-13); PLATELET COUNT 264 10^3/uL (150-450); RED BLOOD COUNT 5.25 10^6/uL (3.72-5.28); RED CELL DISTRIBUTION WIDTH 14.5 % (11.5-14.0); SEGMENTED NEUTROPHILS % (AUTO) 47.9 % (42-78); TOTAL CELLS COUNTED % (AUTO) 100 %; WHITE BLOOD COUNT 5.8 10^3/uL (4.0-10.5)
[2017-09-16 08:09] LABS: ALANINE AMINOTRANSFERASE 22 U/L (9-52); ALBUMIN 3.8 g/dL (3.5-5.0); ALKALINE PHOSPHATASE 79 U/L (38-126); ANION GAP 14 (5-19); ASPARTATE AMINO TRANSFERASE 15 U/L (14-36); BILIRUBIN,TOTAL 0.2 mg/dL (0.2-1.3); BLOOD UREA NITROGEN 6 mg/dL (7-20); CALCIUM 9.8 mg/dL (8.4-10.2); CARBON DIOXIDE 29 mmol/L (22-30); CHLORIDE 97 mmol/L (98-107); GLUCOSE 111 mg/dL (75-110); POTASSIUM 4.1 mmol/L (3.6-5.0); SODIUM 140.2 mmol/L (137-145); TOTAL PROTEIN 6.2 g/dL (6.3-8.2)
[2017-09-16] MEDS: ENOXAPARIN SODIUM INJ 40 MG/0.4 ML DISP.SYRIN SUBCUT SCH (09:57)
--- NOTE | 2017-09-16 10:40 | DRAGON STRESS TEST REPORT ---
INTRAVENOUS LEXISCAN CARDIOLITE STRESS TEST USING SINGLE PHOTON EMMISION COMPUTERIZED TOMOGRAPHIC. 2 DAY PROTOCOL DATE OF PROCEDURE: September 15, 2017, INDICATION : Chest pain CARDIAC RISK FACTORS: Diabetes, hypertension RESTING EKG: Sinus rhythm without any baseline ST-T wave changes STRESS EKG: No significant changes noted with LexiScan bolus REASON FOR TERMINATION: Protocol. PROCEDURE REPORT: Baseline heart rate 88 beats per minute with blood pressure of 110/81. Patient had no significant complaints. Heart rate at 2 minutes post bolus 109 with a blood pressure of 113/87. 3 minutes post bolus heart rate 93 with blood pressure of 116/83. No significant EKG changes were noted. Patient had no significant complaints during the procedure or postprocedure. Patient injected with Aminophyllin 75 mg at 3 minutes or later after Lexiscan bolus. CONCLUSIONS: Normal EKG and hemodynamic response to IV LexiScan. NUCLEAR DATA: Rest imaging was done date 2, stress imaging was done on day 1 that is 15 September. At rest the patient was given 47.7 millicuries of technetium 99 sestamibi injected intravenously. As per protocol rest gated SPECT images were obtained. On day of stress test, the patient was given intravenous LexiScan at a dose of 0.4 mg in 5 mL intravenously, followed by flush with normal saline. Subsequently the stress dose of 40.7 millicuries of technetium 99 sestamibi was injected intravenously. As per protocol stress gated images were obtained. NUCLEAR INTERPRETATION: Both raw and processed data were used for interpretation. Visual, qualitative, computer-generated quantitative data was used. There was good myocardial uptake of technetium compound. Motion artifact and soft tissue attenuations were noted. Increased visceral uptake was noted. Significant breast attenuation artifact was noted. No definitive areas of transient perfusion defect noted except for mild decreased uptake in the mid anterior wall in the stress imaging but is felt to be related to differences in breast attenuation artifact. Therefore unlikely to be due to perfusion defect. Also no corresponding regional wall motion abnormalities were noted. No definitive areas of fixed perfusion defect or scars noted. EKG gated imaging showed LV EF at 64 %, rest and stress gated EF similar visually. T. I D. ratio was 1.12. Lung heart ratio noted to be within normal limits 0.26. No significant extracardiac and abnormal radiotracer activities were noted. RV free wall uptake was noted to be WNL. IMPRESSION: Also refer to comments under nuclear interpretation. Also test results needs to be interpreted in the context of pretest probability. 1. No definitive areas of transient perfusion defect noted. 2. There is no definitive scintigraphic evidence of myocardial infarction/scar. 3. EKG gated imaging shows left ventricular ejection fraction of approx. 64 %. 4. Clinical correlation requested as occasionally single vessel disease or balanced ischemia could be missed. In approximately 10% of the cases Lexiscan may not cause adequate vasodilatory stress. RECOMMENDATIONS: Aggressive risk factor modification and medical management. Further evaluation may be needed if continued symptoms or other high risk indicators are noted on clinical evaluation. Close cardiology follow-up is also recommended. Clinical correlation with echocardiogram derived ejection fraction. Inability to exercise by itself can lead to increased cardiovascular event risks. Consider cardiology consultation and or follow-up if clinically indicated. I am available for cardiology evaluation and consultation if requested by the primary care nurse, unless patient already has a template clerk. ANNA
--- NOTE | 2017-09-16 12:24 | XCELERA REPORT ---
[address] [address] Transthoracic Echocardiogram Report Name: TEVIN BROWN Age: 62 yrs Gender: Female : 1955 Patient Status: Inpatient Patient Location: [address] [place] [address] Study Date: 09/16/2017 10:55 AM Height: 66 in Weight: 379 lb BSA: 2.6 m2 Procedure: A complete two-dimensional transthoracic echocardiogram was performed (2D, M-mode, spectral and color flow Doppler). The study was technically adequate with some images being suboptimal in quality. Reason For Study: chest pain Ordering Physician: JHONATAN LAWSON Performed By: Diamond Jerez Interpretation Summary The left ventricular ejection fraction is normal. There is mild concentric left ventricular hypertrophy. The left ventricle is grossly normal size. Doppler measurements suggest pseudonormalized left ventricular relaxation, which is associated with grade II/IV or mild to moderate diastolic dysfunction No regional wall motion abnormalities noted. The right ventricular systolic function is normal. The right atrium is mildly dilated. The left atrium is mildly dilated. There is a trace amount of mitral regurgitation There is no mitral valve stenosis. No aortic regurgitation is present. There is no aortic valve stenosis There is a trace or physiologic amount of tricuspid regurgitation Tricuspid regurgitation jet envelope not well defined to measure RV systolic pressure accurately. The aortic root is not well visualized but is probably normal size. The inferior vena cava appeared normal and decreased > 50% with respiration (RAP 5-10 mmHg) There is no pericardial effusion. MMode/2D Measurements & Calculations RVDd: 3.6 cm LVIDd: 5.1 cmFS: 39.7 % Ao root diam: 3.2 cm IVSd: 1.2 cm LVIDs: 3.0 cmEDV(Teich): 121.4 ml LVPWd: 1.3 cmESV(Teich): 36.4 ml Ao root area: 8.3 cm2 EF(Teich): 70.1 % LA dimension: 4.3 cm LVOT diam: 2.3 cm LVOT area: 4.1 cm2 Doppler Measurements & Calculations MV E max jerrell: MV P1/2t max jerrell: Ao V2 max: LV V1 max P.6 cm/sec 57.6 cm/sec 156.3 cm/sec 5.0 mmHg MV A max jerrell: MV P1/2t: 58.8 msec Ao max PG: LV V1 max: 64.4 cm/sec MVA(P1/2t): 3.7 cm2 9.8 mmHg 111.8 cm/sec MV E/A: 0.89 MV dec slope: SID(V,D): 2.9 cm2 286.9 cm/sec2 PA V2 max: PI end-d jerrell: TR max jerrell: 95.3 cm/sec 117.0 cm/sec 222.0 cm/sec PA max PG: TR max P.6 mmHg 19.7 mmHg Left Ventricle The left ventricle is grossly normal size. There is mild concentric left ventricular hypertrophy. The left ventricular ejection fraction is normal. Doppler measurements suggest pseudonormalized left ventricular relaxation, which is associated with grade II/IV or mild to moderate diastolic dysfunction. No regional wall motion abnormalities noted. Right Ventricle The right ventricle is mildly dilated. There is normal right ventricular wall thickness. The right ventricular systolic function is normal. Atria The right atrium is mildly dilated. The left atrium is mildly dilated. Interarterial septum not well visualized and not well dopplered. Cannot comment on ASD/PFO presence. Mitral Valve The mitral valve is grossly normal. There is no mitral valve stenosis. There is a trace amount of mitral regurgitation. Aortic Valve The aortic valve is grossly normal. There is no aortic valve stenosis. No aortic regurgitation is present. Tricuspid Valve The tricuspid valve is not well visualized, but is grossly normal. There is no tricuspid stenosis. There is a trace or physiologic amount of tricuspid regurgitation. Tricuspid regurgitation jet envelope not well defined to measure RV systolic pressure accurately. Pulmonic Valve The pulmonic valve is not well visualized. There is a mild amount of pulmonic regurgitation. Great Vessels The aortic root is not well visualized but is probably normal size. The inferior vena cava appeared normal and decreased > 50% with respiration (RAP 5-10 mmHg). Effusions There is no pericardial effusion. : JHONATAN LAWSON > Shay Weiner
[2017-09-16] MEDS ORDERED: PROPOFOL INJ 200 MG/20 ML VIAL IV ONE ×2 (12:49→13:28)
[2017-09-16] MEDS ORDERED: FENTANYL CITRATE INJ/PF 100 MCG/2 ML AMPUL ONE (12:49)
[2017-09-16] MEDS ORDERED: MIDAZOLAM 2 MG/2 ML INJ ONE (12:49)
[2017-09-16] MEDS ORDERED: LIDOCAINE 2%/EPINEPHRINE INJ 1.7 ML CARTRIDGE ONE ×2 (12:56→13:17)
[2017-09-16] MEDS ORDERED: BUPIVACAINE HCL 0.5%/EPI 1:200000 INJ 1.8 ML CARTRIDGE ONE (12:57)
[2017-09-16] MEDS ORDERED: DIPHENHYDRAMINE HCL 50 MG/ML VIAL IV PRN (13:19)
[2017-09-16] MEDS ORDERED: FENTANYL CITRATE INJ/PF 100 MCG/2 ML AMPUL IV PRN ×3 (13:19)
[2017-09-16] MEDS ORDERED: PROMETHAZINE HCL INJ 25 MG/1 ML VIAL IV PRN (13:19)
[2017-09-16] MEDS: FENTANYL CITRATE INJ/PF 100 MCG/2 ML AMPUL ONE ×2 (14:00→14:09)
--- NOTE | 2017-09-16 14:01 | Operative Report ---
Operative Report DATE OF SURGERY: 09/16/17 POSTOPERATIVE DIAGNOSIS: Necrotic teeth # 27 , 4 with Right Mandibular vestibular abscess OPERATION: Extraction of teeth # 27, 4; Incision and Drainage of lower right vestibule SURGEON: KIMBERLY CAMACHO 1ST DIRECTOR CLIENT SERVICES: N/A 2ND Manager Food Safety: N/A ANESTHESIA: Moderate Sedation TISSUE REMOVED OR ALTERED: Teeth # 27, 4 COMPLICATIONS: No complications ESTIMATED BLOOD LOSS: < 5ml INTRAOPERATIVE FINDINGS: Consistent with diagnosis PROCEDURE: Patient procedure performed under MAC. Once adequate anesthesia was obtained and stable vital signs identified the care of the patient was turned over to the surgical team. Local anesthetic was given to obtain SURINDER block on the lower right, as well as, infiltration of anesthetic in the maxillary and mandibular right vestibules in the area of teeth # 4, 27. A #15 scalpal was used to make an 1cm incision in the mandibular right anterior vestibule adjacent to tooth # 27. Dayanna hemostats were then utilized to tunnel anteriorly, posteriorly and inferiorly to the just below the border of the mandible. The tissues were then massaged to release purulent discharge from these areas. The Incision and Drainage site was then irrigated with copious sterile saline and suctioned dry. No drains were placed and the distal edge of the drainage site was reapproximated with a single 4.0 chromic suture leaving the majority of the incision site open for future drainage. An envelope incision was performed around tooth #27 and a # 150 forcep was used to extract tooth number #27 in the standard fashion and the extraction site was irrigated. Attention was then directed to the maxillary right where an envelope incision was made adjacent to tooth #4. A surgical handpiece under saline irrigation was used to remove a small trough of bone around the expose root of #4. The tooth was sectioned and the #2 molt was used to extract the two roots. The soft tissue was reapproximated with one 4.0 chromic suture at the distal papilla of the extraction site. Moistened gauze was used to maintain hemostasis. Care of the patient was then returned to the anesthesia team and the patient was transported to the PACU in stable condition.
--- NOTE | 2017-09-16 14:08 | Brief Operative Note ---
BRIEF OPERATIVE REPORT DATE OF SURGERY: 09/16/17 TIME OF SURGERY: 12:45 PREOPERATIVE DIAGNOSIS: Necrotic teeth # 4, 27; Incision & Drainage of mandibular ritht vestibule POSTOPERATIVE DIAGNOSIS: Same as preop diagnosis SURGEON: KIMBERLY CAMACHO 1ST PLANT SCIENCE PROFESSOR: N/A FINDINGS: Consistent with Preoperative diagnosis COMPLICATIONS: No complications ESTIMATED BLOOD LOSS: <5ml TISSUE REMOVED OR ALTERED: extracted teeth # 27, 4 TECHNICAL PROCEDURE: Surgical extractions # 4, 27; Incision and Drainage of mandibular right vestibule
--- NOTE | 2017-09-16 14:55 | PDOC PROGRESS REPORT ---
Subjective Progress Note for:: 09/16/17 Subjective:: Patient was seen prior to her stress test and dental extraction. Patient this morning stated that the swelling had decreased her mouth was feeling somewhat better. Patient denied any complaint of chest pain. Reason For Visit: FACIAL SWELLING,DYSPENEA, AND CHEST PAIN Physical Exam Vital Signs: Temp Pulse Resp BP Pulse Ox 98.1 F 95 18 135/64 H 96 09/16/17 13:39 09/16/17 14:24 09/16/17 14:24 09/16/17 14:24 09/16/17 14:24 Intake & Output 09/15/17 09/16/17 09/17/17 06:59 06:59 06:59 Intake Total 2104 2060 3050 Output Total 3700 1450 Balance -9125 756 1474 Weight 172.2 kg 172.2 kg General appearance: PRESENT: no acute distress, well-developed, well-nourished Head exam: PRESENT: atraumatic, normocephalic Eye exam: PRESENT: conjunctiva pink, EOMI Ear exam: PRESENT: normal external ear exam Mouth exam: PRESENT: other - Right side mandibular swelling improving Teeth exam: PRESENT: other - Right mandibular swelling which has improved Neck exam: ABSENT: carotid bruit, JVD, lymphadenopathy, thyromegaly Respiratory exam: PRESENT: clear to auscultation nini. ABSENT: rales, rhonchi, wheezes Cardiovascular exam: PRESENT: RRR. ABSENT: diastolic murmur, rubs, systolic murmur Pulses: PRESENT: normal dorsalis pedis pul Vascular exam: PRESENT: normal capillary refill GI/Abdominal exam: PRESENT: normal bowel sounds, soft. ABSENT: distended, guarding, mass, organolmegaly, rebound, tenderness Rectal exam: PRESENT: deferred Extremities exam: PRESENT: full ROM. ABSENT: calf tenderness, clubbing, pedal edema Neurological exam: PRESENT: alert, awake, oriented to person, oriented to place , oriented to time, oriented to situation, CN II-XII grossly intact. ABSENT: motor sensory deficit Psychiatric exam: PRESENT: appropriate affect, normal mood. ABSENT: homicidal ideation, suicidal ideation Skin exam: PRESENT: dry, intact, warm. ABSENT: cyanosis, rash Results Laboratory Results: 09/16/17 06:38 09/16/17 06:38 09/16/17 09/16/17 06:38 06:38 WBC 5.8 RBC 5.25 Hgb 11.7 L Hct 37.8 MCV 72 L MCH 22.3 L MCHC 31.0 L RDW 14.5 H Plt Count 264 Seg Neutrophils % 47.9 Lymphocytes % 39.8 Monocytes % 7.9 Eosinophils % 3.9 Basophils % 0.5 Absolute Neutrophils 2.8 Absolute Lymphocytes 2.3 Absolute Monocytes 0.5 Absolute Eosinophils 0.2 Absolute Basophils 0.0 Sodium 140.2 Potassium 4.1 Chloride 97 L Carbon Dioxide 29 Anion Gap 14 BUN 6 L Creatinine 0.65 Est GFR ( Amer) > 60 Est GFR (Non-Af Amer) > 60 Glucose 111 H Calcium 9.8 Magnesium 1.9 Total Bilirubin 0.2 AST 15 ALT 22 Alkaline Phosphatase 79 Total Protein 6.2 L Albumin 3.8 09/13/17 17:00 Troponin I < 0.012 Impressions: Chest X-Ray 09/13/17 09:40 IMPRESSION: NO ACUTE RADIOGRAPHIC FINDING IN THE CHEST. Soft Tissue Neck CT 09/13/17 10:48 IMPRESSION: NO SIGNIFICANT ABNORMALITY IDENTIFIED. Chest CT 09/13/17 11:05 IMPRESSION: NORMAL CT OF THE CHEST WITH IV CONTRAST. Assessment & Plan - Diagnosis (1) Dental abscess Is this a current diagnosis for this admission?: Yes Plan: Status post extraction of #4 and 27 2 with excision and drainage of right mandible vestibule: Will continue Clindamycin. (2) Sciatica Qualifiers: Laterality: left Qualified Code(s): M54.32 - Sciatica, left side Is this a current diagnosis for this admission?: Yes Plan: Will continue Lidoderm patch (3) Musculoskeletal chest pain Is this a current diagnosis for this admission?: Yes Plan: Equally stress test and 2D echo within normal limits (4) Chest pain Qualifiers: Chest pain type: unspecified Qualified Code(s): R07.9 - Chest pain, unspecified Is this a current diagnosis for this admission?: Yes Plan: Troponins negative. 2D echo and nuclear stress test within normal limits (5) Morbid obesity with BMI of 50.0-59.9, adult Is this a current diagnosis for this admission?: Yes Plan: We will encourage dietary changes. Patient is grossly obese with BMI of 61.3 kg /m. (6) Diabetes type 2, controlled Is this a current diagnosis for this admission?: Yes Plan: Patient's hemoglobin A1c is 5.9. Will continue sliding scale insulin. (7) DVT prophylaxis Is this a current diagnosis for this admission?: Yes Plan: Lovenox. - Time Time Spent with patient: 15-24 minutes - Most likely discharge home tomorrow.
[2017-09-16] MEDS: OXYCODONE-ACETAMINOPHEN 5-325 MG TABLET PO PRN ×2 (15:37→23:34)
[2017-09-16] MEDS: LISINOPRIL 10 MG TABLET PO SCH (15:41)
[2017-09-16] MEDS: LIDOCAINE 5% (700 MG) TRANSDERMAL ADH..PATCH TP SCH (15:45)
[2017-09-16] MEDS: HYDROCHLOROTHIAZIDE 25 MG TABLET PO SCH (16:54)
[2017-09-16] MEDS: ASPIRIN 81 MG TABLET, ENT COATED PO SCH (16:54)
[2017-09-16] MEDS: POTASSI CL 20 MEQ/D5-1/2NS 1L 1,000 ML IV PRN (18:13)
--- NOTE | 2017-09-16 19:34 | PDOC PROGRESS REPORT ---
Subjective Progress Note for:: 09/15/17 Subjective:: Patient seems to be doing better with gradual improvement. Pt is denying any chest arm or neck discomfort. Patient denying any PND, orthopnea. Patient denied any sustained palpitations, dizziness, syncope, near syncope. Patient denying any fever chills. Patient denying any other significant discomfort. Nuclear stress test procedure was explained to the patient in detail. Risks benefits were discussed and informed consent was obtained. Alternatives were discussed. Patient informed that based on risk factors, physical exam, lab data findings and symptoms there is at least intermediate probability of underlying CAD. Nuclear stress test procedure was therefore scheduled. Patient is maintaining sinus rhythm. Patient completed the stress part of the 2 day nuclear stress protocol. Review of systems: Rest review of systems negative. Medications: Medications have been reviewed. Reason For Visit: FACIAL SWELLING,DYSPENEA, AND CHEST PAIN Physical Exam Vital Signs: Temp Pulse Resp BP Pulse Ox 97.9 F 98 18 114/53 L 97 09/15/17 15:20 09/15/17 19:00 09/15/17 15:20 09/15/17 15:20 09/15/17 15:20 Intake & Output 09/14/17 09/15/17 09/16/17 06:59 06:59 06:59 Intake Total 525 2104 1210 Output Total 3700 1150 Balance 525 -1596 60 Weight 172.3 kg 172.2 kg Exam: GENERAL: well-nourished and in no acute distress. Alert and oriented x3 HEAD: Atraumatic, normocephalic. EYES: Pupils equal round and reactive to light, extraocular movements intact, sclera anicteric, conjunctiva are normal. ENT: TMs normal, nares patent, oropharynx clear without exudates. Moist mucous membranes. No oral ulcerations or bleeding gums noted NECK: supple without lymphadenopathy. Trachea is central. No cervical or axillary lymphadenopathy noted. Carotids are 2+, JVD WNL LUNGS: Respiration seems nonlabored, no significant accessory muscle action noted. Breath sounds clear to auscultation bilaterally and equal noted. No wheezes rales or rhonchi noted. No significant dullness noted on percussion. CHEST: Palpation of the chest wall shows no significant chest wall tenderness. No other significant abnormalities noted. HEART: [place] INSPECTOR, No PSH, 1/6 KENDAL aortic area, 1/6 hanna systolic murmur mitral area, no rubs, no gallops. ABDOMEN: Soft, no significant tenderness appreciated, normoactive bowel sounds. No guarding, no rebound. No rigidity noted . No masses appreciated. EXTREMITIES: Pedal pulses are 1-2+, no calf tenderness noted. No clubbing or cyanosis.trace to 1+ pedal edema noted NEUROLOGICAL: Focused neurological exam showed no significant neurologic deficit. Normal speech, no focal weakness appreciated. PSYCH: Normal mood, normal affect. Judgment and insight within normal limits. SKIN: No significant ecchymosis, rash, ulcerations or signs of pruritus noted. MUSCULOSKELETAL EXAM: No significant joint swelling noted. Results Laboratory Results: 09/15/17 05:10 09/15/17 05:10 09/15/17 09/15/17 05:10 05:10 WBC 6.4 RBC 4.94 Hgb 11.0 L Hct 35.4 L MCV 72 L MCH 22.4 L MCHC 31.3 L RDW 14.7 H Plt Count 173 Seg Neutrophils % 43.9 Lymphocytes % 40.7 Monocytes % 11.0 Eosinophils % 3.7 Basophils % 0.7 Absolute Neutrophils 2.8 Absolute Lymphocytes 2.6 Absolute Monocytes 0.7 Absolute Eosinophils 0.2 Absolute Basophils 0.0 Sodium 140.8 Potassium 4.0 Chloride 103 Carbon Dioxide 26 Anion Gap 12 BUN 5 L Creatinine 0.55 Est GFR ( Amer) > 60 Est GFR (Non-Af Amer) > 60 Glucose 113 H Calcium 9.5 Magnesium 1.9 Total Bilirubin 0.3 AST 18 ALT 22 Alkaline Phosphatase 73 Total Protein 5.8 L Albumin 3.5 09/13/17 16:30 Clean Catch Midstream Urine Culture - Final NO GROWTH 2 DAYS 09/13/17 17:00 Troponin I < 0.012 EKG Comments: Telemetry shows sinus rhythm without any sustained tacky or bradycardia arrhythmias. Impressions: Chest X-Ray 09/13/17 09:40 IMPRESSION: NO ACUTE RADIOGRAPHIC FINDING IN THE CHEST. Soft Tissue Neck CT 09/13/17 10:48 IMPRESSION: NO SIGNIFICANT ABNORMALITY IDENTIFIED. Chest CT 09/13/17 11:05 IMPRESSION: NORMAL CT OF THE CHEST WITH IV CONTRAST. Assessment & Plan - Diagnosis (1) Chest pain Qualifiers: Chest pain type: unspecified Qualified Code(s): R07.9 - Chest pain, unspecified Is this a current diagnosis for this admission?: Yes (2) Dental abscess Is this a current diagnosis for this admission?: Yes (3) Diabetes Qualifiers: Diabetes mellitus type: type 2 Diabetes mellitus complication status: with unspecified complications Diabetes mellitus group home insulin use: unspecified group home insulin use status Qualified Code(s): E11.8 - Type 2 diabetes mellitus with unspecified complications Is this a current diagnosis for this admission?: Yes (4) Dyslipidemia Is this a current diagnosis for this admission?: Yes (5) Hypertension Qualifiers: Hypertension type: essential hypertension Qualified Code(s): I10 - Essential (primary) hypertension Is this a current diagnosis for this admission?: Yes (6) Morbid obesity with BMI of 50.0-59.9, adult Is this a current diagnosis for this admission?: Yes (7) Valvular heart disease Is this a current diagnosis for this admission?: Yes - Notes Notes: Chest pain: This was evaluated by a nuclear stress test. Only a stress part was completed today. As part to be completed tomorrow. Dental abscess: Patient being followed by surgeons. Diabetes: Patient advised to good control of diabetes. Dyslipidemia: Continue antilipid therapy. Hypertension: Blood pressure under reasonable control. Blood pressure goal is 135/85 or less this lady. Patient describes history of some valvular abnormalities. 2D echo was ordered but this is pending. Obesity: Patient will benefit from aggressive weight loss. Patient claims that she has lost about 70 pounds already by dieting. She does not want to pursue any surgical options. - Time Time with patient: Greater than 35 minutes - Patient was seen in the morning when nuclear stress test procedure was explained. Patient was seen during the stress test procedure and also afterwards. Brief discussion was made about preliminary results but was informed that final results will be available after comparing the stress with the rest images. 2D echo pending at the time of dictation. Medications reviewed and adjusted accordingly: Yes
--- NOTE | 2017-09-16 19:38 | PDOC PROGRESS REPORT ---
Subjective Progress Note for:: 09/16/17 Subjective:: Patient seen in the morning and also in the afternoon after nuclear images were reviewed. Pt is denying any chest arm or neck discomfort. Patient denying any PND, orthopnea. Patient denied any sustained palpitations, dizziness, syncope, near syncope. Patient denying any fever chills. Patient denying any other significant discomfort. Patient is maintaining sinus rhythm. Review of systems: Rest review of systems negative. Medications: Medications have been reviewed. Reason For Visit: FACIAL SWELLING,DYSPENEA, AND CHEST PAIN Physical Exam Vital Signs: Temp Pulse Resp BP Pulse Ox 97.6 F 94 19 130/59 H 98 09/16/17 15:35 09/16/17 19:00 09/16/17 15:35 09/16/17 15:35 09/16/17 15:35 Intake & Output 09/15/17 09/16/17 09/17/17 06:59 06:59 06:59 Intake Total 2104 2060 5425 Output Total 3700 1450 Balance -2187 632 3292 Weight 172.2 kg 172.2 kg Exam: GENERAL: well-nourished and in no acute distress. Alert and oriented x3 HEAD: Atraumatic, normocephalic. EYES: Pupils equal round and reactive to light, extraocular movements intact, sclera anicteric, conjunctiva are normal. ENT: TMs normal, nares patent, oropharynx clear without exudates. Moist mucous membranes. No oral ulcerations or bleeding gums noted NECK: supple without lymphadenopathy. Trachea is central. No cervical or axillary lymphadenopathy noted. Carotids are 2+, JVD WNL LUNGS: Respiration seems nonlabored, no significant accessory muscle action noted. Breath sounds clear to auscultation bilaterally and equal noted. No wheezes rales or rhonchi noted. No significant dullness noted on percussion. CHEST: Palpation of the chest wall shows no significant chest wall tenderness. No other significant abnormalities noted. 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 ABDOMEN: Soft, no significant tenderness appreciated, normoactive bowel sounds. No guarding, no rebound. No rigidity noted . No masses appreciated. EXTREMITIES: Pedal pulses are 1-2+, no calf tenderness noted. No clubbing or cyanosis.trace to 1+ pedal edema noted NEUROLOGICAL: Focused neurological exam showed no significant neurologic deficit. Normal speech, no focal weakness appreciated. PSYCH: Normal mood, normal affect. Judgment and insight within normal limits. SKIN: No significant ecchymosis, rash, ulcerations or signs of pruritus noted. MUSCULOSKELETAL EXAM: No significant joint swelling noted. Results Laboratory Results: 09/16/17 06:38 09/16/17 06:38 09/16/17 09/16/17 06:38 06:38 WBC 5.8 RBC 5.25 Hgb 11.7 L Hct 37.8 MCV 72 L MCH 22.3 L MCHC 31.0 L RDW 14.5 H Plt Count 264 Seg Neutrophils % 47.9 Lymphocytes % 39.8 Monocytes % 7.9 Eosinophils % 3.9 Basophils % 0.5 Absolute Neutrophils 2.8 Absolute Lymphocytes 2.3 Absolute Monocytes 0.5 Absolute Eosinophils 0.2 Absolute Basophils 0.0 Sodium 140.2 Potassium 4.1 Chloride 97 L Carbon Dioxide 29 Anion Gap 14 BUN 6 L Creatinine 0.65 Est GFR ( Amer) > 60 Est GFR (Non-Af Amer) > 60 Glucose 111 H Calcium 9.8 Magnesium 1.9 Total Bilirubin 0.2 AST 15 ALT 22 Alkaline Phosphatase 79 Total Protein 6.2 L Albumin 3.8 09/13/17 17:00 Troponin I < 0.012 EKG Comments: Telemetry strip shows sinus rhythm without any sustained tacky or bradycardia arrhythmias. Impressions: Chest X-Ray 09/13/17 09:40 IMPRESSION: NO ACUTE RADIOGRAPHIC FINDING IN THE CHEST. Soft Tissue Neck CT 09/13/17 10:48 IMPRESSION: NO SIGNIFICANT ABNORMALITY IDENTIFIED. Chest CT 09/13/17 11:05 IMPRESSION: NORMAL CT OF THE CHEST WITH IV CONTRAST. Assessment & Plan - Diagnosis (1) Chest pain Qualifiers: Chest pain type: unspecified Qualified Code(s): R07.9 - Chest pain, unspecified Is this a current diagnosis for this admission?: Yes (2) Dental abscess Is this a current diagnosis for this admission?: Yes (3) Diabetes Qualifiers: Diabetes mellitus type: type 2 Diabetes mellitus complication status: with unspecified complications Diabetes mellitus intermediate insulin use: unspecified intermediate insulin use status Qualified Code(s): E11.8 - Type 2 diabetes mellitus with unspecified complications Is this a current diagnosis for this admission?: Yes (4) Dyslipidemia Is this a current diagnosis for this admission?: Yes (5) Hypertension Qualifiers: Hypertension type: essential hypertension Qualified Code(s): I10 - Essential (primary) hypertension Is this a current diagnosis for this admission?: Yes (6) Morbid obesity with BMI of 50.0-59.9, adult Is this a current diagnosis for this admission?: Yes - Notes Notes: Chest pain: Patient claims chest pain is resolved. This was evaluated with a nuclear stress test. Nuclear stress test was negative for any significant areas of ischemia or any significant areas of scar. The nuclear stress test is felt to be relatively low risk. Patient informed that occasionally single- vessel disease and balanced ischemia could be missed. Patient advised aggressive risk factor modification and medical therapy. Patient informed that further evaluation may become necessary if symptoms worsens or there is a development of new symptoms indicative of angina or angina equivalent symptom. Dental abscess: Patient cleared for oral surgery. Diabetes: Currently is stable. Being well managed by retail account executive. Dyslipidemia: Continue statin therapy. Hypertension: Blood pressure goal is 140/90. This is under reasonable control. Morbid obesity: Patient losing weight on her own. Does not want bariatric surgery. 2D echo results reviewed. It showed LVEF to be within normal limits no significant valvular abnormalities noted. - Time Time with patient: Greater than 35 minutes - CODE STATUS was discussed, patient remains full code. Surrogate decision-maker unchanged. Multiple medical problems were addressed. More than 50% of the time spent coordinating care, discussing management plans with involved caregivers. Management plans discussed with involved personnels. Medical decision making was of moderate to high complexity, patient's has multiple comorbidities. Medications reviewed and adjusted accordingly: Yes
[2017-09-17] MEDS: CLINDAMYCIN 900 MG/D5W RTU 50 ML IV SCH (05:28)
[2017-09-17] MEDS: OXYCODONE-ACETAMINOPHEN 5-325 MG TABLET PO PRN ×2 (06:35→10:37)
[2017-09-17] MEDS: LISINOPRIL 10 MG TABLET PO SCH (10:36)
[2017-09-17] MEDS: ASPIRIN 81 MG TABLET, ENT COATED PO SCH (10:38)
[2017-09-17] MEDS: HYDROCHLOROTHIAZIDE 25 MG TABLET PO SCH (10:38)
[2017-09-17] MEDS: ENOXAPARIN SODIUM INJ 40 MG/0.4 ML DISP.SYRIN SUBCUT SCH (10:38)
[2017-09-17] MEDS: POTASSI CL 20 MEQ/D5-1/2NS 1L 1,000 ML IV PRN (10:41)
--- NOTE | 2017-09-17 11:54 | PDOC DISCHARGE SUMMARY ---
General - Admit/Disc Date/PCP Admission Date/Primary Care Provider: 09/13/17 14:37 DAVID MUNOZ MD Discharge Date: 09/17/17 - Discharge Diagnosis (1) Dental abscess Is this a current diagnosis for this admission?: Yes Summary: Status post extraction of fourth and 27th teeth on the right side followed by incision and drainage of right mandibular vestibule: She will continue clindamycin for a total of 10 more days. (2) Sciatica Is this a current diagnosis for this admission?: Yes Summary: We will continue Lidoderm patch to affected area. She was instructed to work on weight loss (3) Musculoskeletal chest pain Is this a current diagnosis for this admission?: Yes Summary: Supportive care (4) Chest pain Is this a current diagnosis for this admission?: Yes Summary: Acute coronary artery syndrome ruled out (5) Morbid obesity with BMI of 50.0-59.9, adult Is this a current diagnosis for this admission?: Yes Summary: Encourage dietary changes (6) Diabetes type 2, controlled Is this a current diagnosis for this admission?: Yes Summary: Continue home regimen - Additional Information Resuscitation Status: Full Code Discharge Diet: Cardiac Discharge Activity: Activity As Tolerated Prescriptions: Clindamycin HCl 300 mg PO Q6 #80 capsule Lidocaine [Lidoderm 5% (700 mg) Transdermal Patch] 2 patch TP DAILY #20 adh..patch Oxycodone HCl/Acetaminophen [Percocet 5-325 mg Tablet] 1 tab PO Q4HP PRN #15 tablet PRN Reason: Home Medications: Acetaminophen [Tylenol Extra Strength 500 mg Tablet] 500 mg PO Q6 PRN 09/13/17 Ascorbic Acid [Vitamin C 500 mg Tablet] 500 mg PO BID 09/13/17 Aspirin [Aspirin EC] 81 mg PO DAILY 09/13/17 Ferrous Sulfate [Feosol 325 mg Tablet] 325 mg PO DAILY 09/13/17 Hydrochlorothiazide [Hydrodiuril 25 mg Tablet] 25 mg PO TID 09/13/17 Lisinopril [Prinivil 40 mg Tablet] 80 mg PO DAILY 09/13/17 Metformin HCl [Glucophage 500 mg Tablet] 500 mg PO BID 09/13/17 Methocarbamol [Robaxin 500 mg Tablet] 500 mg PO QID 09/13/17 Clindamycin HCl 300 mg PO Q6 #80 capsule 09/17/17 Lidocaine [Lidoderm 5% (700 mg) Transdermal Patch] 2 patch TP DAILY #20 adh..patch 09/17/17 Oxycodone HCl/Acetaminophen [Percocet 5-325 mg Tablet] 1 tab PO Q4HP PRN #15 tablet 09/17/17 History of Present Illness Patient complains of: Right-sided jaw pain History of Present Illness: TEVIN BROWN is a 62 year old female presented to the emergency room with complaint of right-sided jaw pain. Patient also complained of chest pain as well. Hospital Course Hospital Course: Patient 62-year-old morbidly obese woman who presents to the office facility with complaint of right-sided jaw pain. Patient was found to have dental caries accompanied by abscess. Dr. Alba came in and extracted 2 teeth and I and D right side of the mandibular vestibule. Patient was continued on clindamycin for treatment. Patient had a nuclear stress stress test and 2D echo that demonstrated normal findings. Patient also complained of left leg pain which was consistent with sciatica. Patient was encouraged to make dietary changes in order to lose weight. Patient is morbidly obese. Physical Exam Vital Signs: Temp Pulse Resp BP Pulse Ox 98.5 F 84 18 125/70 96 09/17/17 07:56 09/17/17 07:56 09/17/17 07:56 09/17/17 07:56 09/17/17 07:56 Intake & Output 09/16/17 09/17/17 09/18/17 06:59 06:59 06:59 Intake Total 2060 6961 Output Total 1450 4300 Balance 610 2661 Weight 172.2 kg 177.2 kg General appearance: PRESENT: no acute distress, morbidly obese, well-developed, well-nourished Head exam: PRESENT: atraumatic, normocephalic Eye exam: PRESENT: conjunctiva pink, EOMI. ABSENT: scleral icterus Ear exam: PRESENT: normal external ear exam Mouth exam: PRESENT: moist, tongue midline Neck exam: ABSENT: carotid bruit, JVD, lymphadenopathy, thyromegaly Respiratory exam: PRESENT: clear to auscultation nini. ABSENT: rales, rhonchi, wheezes Cardiovascular exam: PRESENT: RRR. ABSENT: diastolic murmur, rubs, systolic murmur Pulses: PRESENT: normal dorsalis pedis pul Vascular exam: PRESENT: normal capillary refill GI/Abdominal exam: PRESENT: normal bowel sounds, soft. ABSENT: distended, guarding, mass, organolmegaly, rebound, tenderness Rectal exam: PRESENT: deferred Extremities exam: PRESENT: full ROM. ABSENT: calf tenderness, clubbing, pedal edema Musculoskeletal exam: PRESENT: full ROM Neurological exam: PRESENT: alert, awake, oriented to person, oriented to place , oriented to time, oriented to situation, CN II-XII grossly intact. ABSENT: motor sensory deficit Psychiatric exam: PRESENT: appropriate affect, normal mood. ABSENT: homicidal ideation, suicidal ideation Skin exam: PRESENT: dry, intact, warm. ABSENT: cyanosis, rash Results Laboratory Results: 09/16/17 06:38 09/16/17 06:38 09/13/17 17:00 Troponin I < 0.012 Impressions: Chest X-Ray 09/13/17 09:40 IMPRESSION: NO ACUTE RADIOGRAPHIC FINDING IN THE CHEST. Soft Tissue Neck CT 09/13/17 10:48 IMPRESSION: NO SIGNIFICANT ABNORMALITY IDENTIFIED. Chest CT 09/13/17 11:05 IMPRESSION: NORMAL CT OF THE CHEST WITH IV CONTRAST. Qualifiers - * [place] BEING DISCHARGED WITH ANY OF THE FOLLOWING DIAGNOSIS?: No Plan Time Spent: Greater than 30 Minutes
[2017-09-17 12:54] VITALS: BP 140/77
--- NOTE | 2017-09-18 17:01 | PDOC PROGRESS REPORT ---
Subjective Progress Note for:: 09/17/17 Subjective:: Patient was seen in morning rounds but somehow dictation got missed. Patient seen in the morning. Patient had dental surgery yesterday without any complications. Patient is suspected to be discharged. Pt is denying any chest arm or neck discomfort. Patient denying any PND, orthopnea. Patient denied any sustained palpitations, dizziness, syncope, near syncope. Patient denying any fever chills. Patient denying any other significant discomfort. Patient is maintaining sinus rhythm. Review of systems: Rest review of systems negative. Medications: Medications have been reviewed. Reason For Visit: FACIAL SWELLING,DYSPENEA, AND CHEST PAIN Physical Exam Vital Signs: Temp Pulse Resp BP Pulse Ox 98.2 F 76 16 140/77 H 97 09/17/17 12:49 09/17/17 12:49 09/17/17 12:49 09/17/17 12:49 09/17/17 12:49 Intake & Output 09/17/17 09/18/17 09/19/17 06:59 06:59 06:59 Intake Total 6961 Output Total 4300 Balance 2661 Weight 177.2 kg Exam: GENERAL: well-nourished and in no acute distress. Alert and oriented x3 HEAD: Atraumatic, normocephalic. EYES: Pupils equal round and reactive to light, extraocular movements intact, sclera anicteric, conjunctiva are normal. ENT: TMs normal, nares patent, oropharynx clear without exudates. Moist mucous membranes. No oral ulcerations or bleeding gums noted. Right-sided submandibular swelling and oral cavity swelling noted but patient without any significant discomfort or swallowing difficulty. NECK: supple without lymphadenopathy. Trachea is central. No cervical or axillary lymphadenopathy noted. Carotids are 2+, JVD WNL LUNGS: Respiration seems nonlabored, no significant accessory muscle action noted. Breath sounds clear to auscultation bilaterally and equal noted. No wheezes rales or rhonchi noted. No significant dullness noted on percussion. CHEST: Palpation of the chest wall shows no significant chest wall tenderness. No other significant abnormalities noted. 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 ABDOMEN: Soft, no significant tenderness appreciated, normoactive bowel sounds. No guarding, no rebound. No rigidity noted . No masses appreciated. EXTREMITIES: Pedal pulses are 1-2+, no calf tenderness noted. No clubbing or cyanosis.trace to 1+ pedal edema noted NEUROLOGICAL: Focused neurological exam showed no significant neurologic deficit. Normal speech, no focal weakness appreciated. PSYCH: Normal mood, normal affect. Judgment and insight within normal limits. SKIN: No significant ecchymosis, rash, ulcerations or signs of pruritus noted. MUSCULOSKELETAL EXAM: No significant joint swelling noted. Results Laboratory Results: 09/16/17 06:38 09/16/17 06:38 09/13/17 17:00 Troponin I < 0.012 Impressions: Chest X-Ray 09/13/17 09:40 IMPRESSION: NO ACUTE RADIOGRAPHIC FINDING IN THE CHEST. Soft Tissue Neck CT 09/13/17 10:48 IMPRESSION: NO SIGNIFICANT ABNORMALITY IDENTIFIED. Chest CT 09/13/17 11:05 IMPRESSION: NORMAL CT OF THE CHEST WITH IV CONTRAST. Assessment & Plan - Diagnosis (1) Chest pain Qualifiers: Chest pain type: unspecified Qualified Code(s): R07.9 - Chest pain, unspecified Is this a current diagnosis for this admission?: Yes (2) Dental abscess Is this a current diagnosis for this admission?: Yes (3) Diabetes Qualifiers: Diabetes mellitus type: type 2 Diabetes mellitus complication status: with unspecified complications Diabetes mellitus fpc insulin use: unspecified termite exterminator helper insulin use status Qualified Code(s): E11.8 - Type 2 diabetes mellitus with unspecified complications Is this a current diagnosis for this admission?: Yes (4) Dyslipidemia Is this a current diagnosis for this admission?: Yes (5) Hypertension Qualifiers: Hypertension type: essential hypertension Qualified Code(s): I10 - Essential (primary) hypertension Is this a current diagnosis for this admission?: Yes (6) Morbid obesity with BMI of 50.0-59.9, adult Is this a current diagnosis for this admission?: Yes - Notes Notes: Patient has done well this admission. Had surgery without any complications. 2D echo results and nuclear stress test results were reviewed with the patient. Patient has been advised strongly to lose weight. She was informed that she could follow-up with me. Patient was also informed that she would benefit from evaluation of sleep apnea syndrome. Patient given my card to follow-up with me if she wishes.. - Time Time with patient: 15-25 minutes - More than 50% of the time spent coordinating care, discussing management plans with involved caregivers. Management plans discussed with involved personnels. Medical decision making was of moderate to high complexity, patient's has multiple comorbidities. Medications reviewed and adjusted accordingly: Yes
== END 2017-09-17 13:20 | disposition home or self-care (01) | DRG 158 ==
LOC: ER 08:51 → EH 14:37 → UNDOADMIN 14:37 → 5 23:36
PROVIDERS: ADMIT Hospitalist; ATTEND Hospitalist
PROC: 0C9X0Z0 Drainage of Lower Tooth, Open Approach, Single (ICD-10-PCS; 2017-09-16)
PROC: 0CDXXZ1 Extraction of Lower Tooth, Multiple, External Approach (ICD-10-PCS; principal; 2017-09-16 12:30)
DX: K04.7 Periapical abscess without sinus (principal); I38 Endocarditis, valve unspecified; Z68.44 Body mass index [BMI] 60.0-69.9, adult; R07.9 Chest pain, unspecified; E11.9 Type 2 diabetes mellitus without complications; K08.89 Other specified disorders of teeth and supporting structures; K02.9 Dental caries, unspecified; R07.89 Other chest pain; E78.00 Pure hypercholesterolemia, unspecified; I10 Essential (primary) hypertension; G43.909 Migraine, unspecified, not intractable, without status migrainosus; M54.32 Sciatica, left side; M19.90 Unspecified osteoarthritis, unspecified site; E66.01 Morbid (severe) obesity due to excess calories; Z79.84 Long term (current) use of oral hypoglycemic drugs; Z79.82 Long term (current) use of aspirin; Z79.899 Other long term (current) drug therapy; Z87.891 Personal history of nicotine dependence
CPT/HCPCS: 170; 36415; 70491; 71045; 71260; 78452; 80048; 80053; 81001; 82803; 82962; 83036; 83605; 83735; 84484; 85025; 87040; 87086; 93005; 93010; 93017; 93306; 96361; 96365; 96366; 96367; 96375; 99285; A9500; J0280; J1170; J1650; J2250; J2405; J2543; J2704; J2785; J3010; J3370; J3480; J3490; J7030; Q9969

== ENCOUNTER 2018-03-29 09:22 | Day surgery (SDC) | payer OTHER, MEDICARE ==
[~2018-03-29 09:22] MED LIST: BUPIVACAINE HCL 0.75% INJ/PF (7.5 MG/1 ML) 10 ML SDV OS PRN; KETOROLAC TROMETHAMINE 0.45% 4 DROP/0.4 ML DROPERETTE OS PRN; LIDOCAINE 4% INJ/PF (40 MG/ML) 5 ML AMPUL OS PRN
[2018-03-29] MEDS ORDERED: EPINEPHRINE INJ/PF 1 MG/1 ML AMPULE ONE (09:28)
[2018-03-29] MEDS ORDERED: CHONDR SU A NA/HYALUR INTRAOC KIT (SURGICARE) ONE (09:28)
[2018-03-29] MEDS ORDERED: LIDOCAINE 1% INJ-PF (10 MG/ML) 30 ML SDV ONE (09:28)
[2018-03-29] MEDS: TROPICAMIDE 1% OPH SOLN 3 ML OS PRN ×3 (10:26→10:46)
[2018-03-29] MEDS: CYCLOPENTOLATE 0.2%/PHENYLEPHRINE 1% OPH SOLN 2 ML OS PRN ×3 (10:26→10:46)
[2018-03-29] MEDS: BESIFLOXACIN HCL 0.6% OPH SUSP 5 ML BOTTLE OS PRN ×4 (10:26→11:28)
[2018-03-29] MEDS: TETRACAINE HCL 0.5% OPH SOLN 0.6 ML DROPERETTE OS PRN ×2 (10:27→10:46)
[2018-03-29] MEDS ORDERED: MIDAZOLAM 2 MG/2 ML INJ ONE ×2 (10:42→10:44)
[2018-03-29] MEDS ORDERED: FENTANYL CITRATE INJ/PF 100 MCG/2 ML AMPUL ONE (10:42)
--- NOTE | 2018-03-29 13:12 | [facility] DISCHARGE SUMMARY E ---
[facility] Discharge Summary NAME: TEVIN BROWN AGE: 62Y ADMITTED: 03/29/2018 DISCHARGED: 03/29/2018 FINAL DIAGNOSIS: Cataract, left eye. HOSPITAL COURSE: The patient is a 62-year-old lady who underwent uneventful cataract extraction with intraocular lens implant, left eye, on 03/29/2018. She will be discharged to home. She was instructed to resume preoperative medications; to take Tylenol as needed for discomfort; to keep her eye shielded; to use Pred Forte, ketorolac, and Vigamox at 3 p.m. and 8 p.m.; and to follow up in my office in 1 day. DICTATING PHYSICIAN: SERGIO ALVAREZ M.D. [id number] [id number] ID: [id number] JOB#: [id number] ACCT: [id number] cc:SERGIO ALVAREZ M.D. >
--- NOTE | 2018-03-29 13:12 | [facility]ARE OPERATIVE REPORT E ---
[facility] Operative Report NAME: TEVIN BROWN AGE: 62Y DATE OF SURGERY: 03/29/2018 ROOM: PREOPERATIVE DIAGNOSIS: Cataract, left eye. POSTOPERATIVE DIAGNOSIS: Cataract, left eye. OPERATION: Phacoemulsification with posterior chamber intraocular lens, left eye. SURGEON: SERGIO ALVAREZ M.D. ANESTHESIA: Topical with MAC. INDICATIONS FOR SURGERY: Difficulty reading road signs and words on TV. Best corrected visual acuity 20/60. PROCEDURE: The patient was brought to the operating room and placed on the operative table. Following tetracaine drops, topical anesthesia was administered. This consisted of instrument wipe pledgets soaked in a solution of 4% Xylocaine mixed with 0.75% Marcaine in a 1:2 ratio. A 2 x 1 cm pledget was placed in the superior fornix. A 1 x 1 cm pledget was placed in the inferior fornix. The eye was patched shut for 5 minutes. The patch was removed. The eye was sterilely prepped and draped in the usual manner. Lid speculum was placed in the eye. The pledgets were removed and 4-0 black silk sutures were placed around the superior and the inferior rectus muscles to be used as traction. A conjunctival peritomy was made at the 10 o'clock position. Hemostasis was obtained with bipolar cautery. A posterior limbal groove was created using a crescent knife and dissected anteriorly towards the cornea. A sharp point blade was used to create a paracentesis site at the 2 o'clock position. A 2.4 mm keratome was used to enter the anterior chamber through the groove. Viscoelastic was injected into the anterior chamber. An anterior capsulotomy was performed using Utrata forceps in a capsulorrhexis fashion. Hydrodissection and hydrodelineation were performed. Phacoemulsification was performed in kepdbh-plt-cowdboa technique. A total of 33 seconds phaco time was used. Following this, the I/A unit was used to remove residual cortex. Viscoelastic was injected into the capsular bag. Intraocular lens model [id number], 16.5 diopters, serial number [id number], was placed in the capsular bag. The I/A unit was used to remove residual viscoelastic. The wound was seen to be watertight under high and low pressure, and no sutures were placed. The intraocular lens was well centered. The pressure was adjusted in the eye to normal pressure. The 4-0 black silk sutures and lid speculum were removed. The eye was shielded after Besivance drops were placed. The patient tolerated the procedure well and was sent to the recovery room in good condition. DICTATING PHYSICIAN: SERGIO ALVAREZ M.D. [id number] PHY#: [id number] ID: [id number] JOB#: [id number] ACCT: [id number] cc:SERGIO ALVAREZ M.D. >
== END 2018-03-29 12:04 | disposition home or self-care (01) ==
LOC: SC 09:22
PROVIDERS: ATTEND Ophthalmology
DX: H25.813 Combined forms of age-related cataract, bilateral (principal); H04.123 Dry eye syndrome of bilateral lacrimal glands; H52.4 Presbyopia; E11.9 Type 2 diabetes mellitus without complications; I10 Essential (primary) hypertension; E78.00 Pure hypercholesterolemia, unspecified; M19.90 Unspecified osteoarthritis, unspecified site; E66.9 Obesity, unspecified; Z68.44 Body mass index [BMI] 60.0-69.9, adult; Z87.891 Personal history of nicotine dependence; Z79.899 Other long term (current) drug therapy; Z79.84 Long term (current) use of oral hypoglycemic drugs
CPT/HCPCS: 66984; 82962; V2632; J2250; J3490 ×4; J0171; J3010

== ENCOUNTER 2018-05-03 06:42 | Day surgery (SDC) | payer OTHER, MEDICARE ==
[~2018-05-03 06:42] MED LIST changes: +BUPIVACAINE HCL 0.75% INJ/PF (7.5 MG/1 ML) 10 ML SDV OD PRN; -BUPIVACAINE HCL 0.75% INJ/PF (7.5 MG/1 ML) 10 ML SDV OS PRN; +KETOROLAC TROMETHAMINE 0.45% 4 DROP/0.4 ML DROPERETTE OD PRN; -KETOROLAC TROMETHAMINE 0.45% 4 DROP/0.4 ML DROPERETTE OS PRN; +LIDOCAINE 4% INJ/PF (40 MG/ML) 5 ML AMPUL OD PRN; -LIDOCAINE 4% INJ/PF (40 MG/ML) 5 ML AMPUL OS PRN
[2018-05-03] MEDS ORDERED: MIDAZOLAM 2 MG/2 ML INJ ONE ×2 (06:45→06:51)
[2018-05-03] MEDS: TETRACAINE HCL 0.5% OPH SOLN 0.6 ML DROPERETTE OD PRN ×2 (06:51→07:20)
[2018-05-03] MEDS: CYCLOPENTOLATE 0.2%/PHENYLEPHRINE 1% OPH SOLN 2 ML OD PRN ×3 (06:51→07:14)
[2018-05-03] MEDS: BESIFLOXACIN HCL 0.6% OPH SUSP 5 ML BOTTLE OD PRN ×3 (06:51→07:03)
[2018-05-03] MEDS: TROPICAMIDE 1% OPH SOLN 3 ML OD PRN ×3 (06:51→07:15)
[2018-05-03] MEDS ORDERED: LIDOCAINE 1% INJ-PF (10 MG/ML) 30 ML SDV ONE (07:06)
[2018-05-03] MEDS ORDERED: EPINEPHRINE INJ/PF 1 MG/1 ML AMPULE ONE (07:06)
[2018-05-03] MEDS ORDERED: CHONDR SU A NA/HYALUR INTRAOC KIT (SURGICARE) ONE (07:07)
--- NOTE | 2018-05-03 08:13 | EKG REPORT ---
SEVERITY:- NORMAL ECG - SINUS RHYTHM : Confirmed by: Yesi Salgado MD 03-May-2018 08:13:10
== END 2018-05-03 07:55 | disposition home or self-care (01) ==
LOC: SC 06:42
PROVIDERS: ATTEND Ophthalmology
DX: H25.811 Combined forms of age-related cataract, right eye (principal); R07.9 Chest pain, unspecified
CPT/HCPCS: 82962; 93005; 93010; J3490 ×2; J0171; J2250

== ENCOUNTER 2018-05-03 08:02 | Emergency (ER) | payer OTHER, MEDICARE ==
[2018-05-03] MEDS ORDERED: LISINOPRIL 10 MG TABLET PO ONE (08:51)
[2018-05-03] MEDS ORDERED: ASPIRIN 81 MG TABLET, CHEWABLE PO ONE (08:51)
[2018-05-03] MEDS ORDERED: HYDROCHLOROTHIAZIDE 25 MG TABLET PO ONE (08:54)
--- NOTE | 2018-05-03 09:00 | RADIOLOGY REPORT (SQ) ---
EXAM DESCRIPTION: CHEST 2 VIEWS COMPLETED DATE/TIME: 05/03/2018 8:38 am REASON FOR STUDY: chest pain COMPARISON: 05/22/2016. EXAM PARAMETERS: NUMBER OF VIEWS: two views TECHNIQUE: Digital Frontal and Lateral radiographic views of the chest acquired. RADIATION DOSE: NA LIMITATIONS: none FINDINGS: LUNGS AND PLEURA: No opacities, masses or pneumothorax. No pleural effusion. MEDIASTINUM AND HILAR STRUCTURES: No masses or contour abnormalities. HEART AND VASCULAR STRUCTURES: Heart normal size. No evidence for failure. BONES: No acute findings. HARDWARE: None in the chest. OTHER: No other significant finding. IMPRESSION: NO ACUTE RADIOGRAPHIC FINDING IN THE CHEST. TECHNICAL DOCUMENTATION: JOB ID: [id number] [employer]- All Rights Reserved Reading location - IP/workstation name: [email or web address]
[2018-05-03 09:20] LABS: ABSOLUTE EOSINOPHILS # (AUTO) 0.1 10^3/uL (0.0-0.6); ABSOLUTE LYMPHOCYTES (AUTO) 2.1 10^3/uL (0.5-4.7); ABSOLUTE MONOCYTES (AUTO) 0.4 10^3/uL (0.1-1.4); ABSOLUTE NEUT (AUTO) 3.2 10^3/uL (1.7-8.2); BASOPHILS % (AUTO) 0.8 % (0-2); EOSINOPHILS % (AUTO) 2.5 % (0-6); HEMATOCRIT 39.8 % (36.0-47.0); HEMOGLOBIN 12.5 g/dL (12.0-15.5); LYMPHOCYTES % (AUTO) 35.3 % (13-45); MEAN CORPUSCULAR HGB CONC 31.5 g/dL (32.0-36.0); MEAN CORPUSCULAR VOLUME 73 fl (80-97); MONOCYTES % (AUTO) 6.2 % (3-13); PLATELET COUNT 256 10^3/uL (150-450); RED BLOOD COUNT 5.44 10^6/uL (3.72-5.28); RED CELL DISTRIBUTION WIDTH 14.7 % (11.5-14.0); SEGMENTED NEUTROPHILS % (AUTO) 55.2 % (42-78); TOTAL CELLS COUNTED % (AUTO) 100 %; WHITE BLOOD COUNT 5.8 10^3/uL (4.0-10.5)
[2018-05-03 09:47] LABS: ALANINE AMINOTRANSFERASE 20 U/L (9-52); ALBUMIN 4.1 g/dL (3.5-5.0); ALKALINE PHOSPHATASE 105 U/L (38-126); ANION GAP 8 (5-19); ASPARTATE AMINO TRANSFERASE 19 U/L (14-36); BILIRUBIN,DIRECT 0.4 mg/dL (0.0-0.4); BILIRUBIN,TOTAL 0.4 mg/dL (0.2-1.3); BLOOD UREA NITROGEN 10 mg/dL (7-20); CALCIUM 10.2 mg/dL (8.4-10.2); CARBON DIOXIDE 30 mmol/L (22-30); CHLORIDE 100 mmol/L (98-107); CREATINE KINASE 36 U/L (30-135); GLUCOSE 112 mg/dL (75-110); POTASSIUM 4.5 mmol/L (3.6-5.0); TOTAL PROTEIN 7.2 g/dL (6.3-8.2)
[2018-05-03 10:00] LABS: TROPONIN I < 0.012 ng/mL
--- NOTE | 2018-05-03 12:13 | ER Document Report ---
ED Cardiac - General Chief Complaint: Chest Pain Stated Complaint: CHEST PAIN Time Seen by Provider: 05/03/18 08:38 Mode of Arrival: Ambulatory Information source: Patient Notes: Patient is a 62-year-old morbidly obese female comes to the emergency room complaining of left-sided chest pain. Patient tells me that she was at the [facility] I sent her to have it a cataract removed when she had a 15-second interval of some chest discomfort on the left side. She states that she has a history of heart fluttering as she calls it and then tells me is like missing a beat and she is learning to live with it however today that same thing transpired but this time she had intense pain. She had no diaphoresis and no nausea at the time of this pain. It lasted approximately 15 seconds then is totally bandaged. Currently in ER she is pain-free. She has a significant medical history for ypw-vezqdxb-[id number] diabetes, hypertension, COPD she does not smoke no narcotics and no alcohol. TRAVEL OUTSIDE OF THE [place] IN LAST 30 DAYS: No - HPI Patient complains to provider of: Chest pain Was the onset of pain: Sudden Is the pain a: New problem Chest pain location: Substernal, Pleuritic, Under breast Quality of pain: Sharp, Throbbing Severity now: None Severity at worst: Moderate Pain level currently: 3 Chest pain precipitating factors: At Rest Cardiac risk factors: Diabetes, Hypertension, Dyslipidemia Positive cardiac history: Yes Associated symptoms: None Exacerbated by: Denies Relieved by: Nothing, Other - Time it only lasted 15 seconds Similar symptoms previously: Yes Recently seen / treated by doctor: No - Related Data Allergies/Adverse Reactions: Sulfa (Sulfonamide Antibiotics) Allergy (Unknown, Verified 05/03/18 08:10) peach [[place]] Adverse Reaction (Verified 05/03/18 08:10) RASH Past Medical History - General Information source: Patient, Relative - Social History Smoking Status: Never Smoker Cigarette use (# per day): No Chew tobacco use (# tins/day): No Smoking Education Provided: No Frequency of alcohol use: None Drug Abuse: None Family History: Reviewed & Not Pertinent, DM, Hypertension Patient has suicidal ideation: No Patient has homicidal ideation: No - Past Medical History Cardiac Medical History: Reports: Hx Hypercholesterolemia, Hx Hypertension Denies: Hx Heart Attack Pulmonary Medical History: Denies: Hx Asthma Neurological Medical History: Reports: Hx Migraine. Denies: Hx Cerebrovascular Accident, Hx Seizures Endocrine Medical History: Reports: Hx Diabetes Mellitus Type 2 Renal/ Medical History: Denies: Hx Peritoneal Dialysis GI Medical History: Denies: Hx Hepatitis, Hx Hiatal Hernia, Hx Ulcer Musculoskeletal Medical History: Reports Hx Arthritis Psychiatric Medical History: Denies: Hx Depression Infectious Medical History: Denies: Hx Hepatitis Past Surgical History: Reports: Hx Hysterectomy. Denies: Hx Mastectomy, Hx Open Heart Surgery, Hx Pacemaker - Immunizations Hx Diphtheria, Pertussis, Tetanus Vaccination: No Hx Pneumococcal Vaccination: 03/26/17 Review of Systems - Review of Systems Constitutional: No symptoms reported EENT: No symptoms reported Cardiovascular: Chest pain, Palpitations Respiratory: No symptoms reported Gastrointestinal: No symptoms reported Genitourinary: No symptoms reported Female Genitourinary: No symptoms reported Musculoskeletal: No symptoms reported Skin: No symptoms reported Hematologic/Lymphatic: No symptoms reported Neurological/Psychological: No symptoms reported -: Yes All other systems reviewed and negative Physical Exam - Vital signs Vitals: Temp Pulse Resp BP Pulse Ox 97.8 F 81 18 146/85 H 97 05/03/18 08:15 05/03/18 08:15 05/03/18 08:15 05/03/18 08:15 05/03/18 08:15 Interpretation: Hypertensive - Notes Notes: Patient is a well-nourished well-developed 62-year-old morbidly obese female comes emergency room complaining of chest pain who is in no apparent distress. She is pain-free. - General General appearance: Alert, Anxious - HEENT Head: Normocephalic, Atraumatic Eyes: Normal Conjunctiva: Normal Cornea: Normal - Respiratory Respiratory status: No respiratory distress Chest status: Nontender Breath sounds: Decreased air movement. No: Rales, Rhonchi, Stridor, Wheezing Chest palpation: Normal - Cardiovascular Rhythm: Regular Heart sounds: Normal auscultation Murmur: No - Abdominal Inspection: Normal Distension: No distension Bowel sounds: Normal Tenderness: Nontender Organomegaly: No organomegaly - Back Back: Normal, Nontender. No: Deformity/step-off, CVA tenderness, Vertebra tenderness - Extremities General upper extremity: Normal inspection, Nontender, Normal ROM, Normal strength General lower extremity: Normal inspection, Nontender, Normal ROM, Normal strength Ankle: No: Edema Foot: No: Edema Course - Re-evaluation Re-evalutation: 05/03/18 12:25 Patient stay in the emergency room has been uneventful. She has had no more extension of her baseline PVCs. Ms. AMI she has had no additional PVCs and she has had no additional pain. Given that this is mostly been palpitations with a 15 seconds of discomfort I believe it is prudent enough to keep patient run a second set of troponins. It was troponins were also negative EKG has no changes I feel it is beneficial for her to go home at this time. 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 05/03/18 15:25 Patient has been in ER for quite a while now. She has not had any more episodes of this discomfort. Her EKGs have been spot on normal. And I have repeated it twice and they have no changes. Basic sinus rhythm no sign of infarction. And this is compared with her previous EKG of August 2017. So given patient's history I feel it is safe to allow her to return to her home. I believe these PVCs are causing her some difficulties. The discomfort could have been through stress secondary to the surgery any number of things but EKGs being normal her troponins been normal x2 I feel she is safe to return home. She has a second class welder at the [employer] and wanting her to follow-up with. And she has agreed to do so. She will not be over stressed or do too much physical activity until such time as she can see the second class welder. - Vital Signs Vital signs: Temp Pulse Resp BP Pulse Ox 97.8 F 81 17 109/68 97 05/03/18 08:15 05/03/18 08:15 05/03/18 15:01 05/03/18 15:01 05/03/18 15:01 - Laboratory Result Diagrams: 05/03/18 08:50 05/03/18 08:50 Laboratory results interpreted by me: 05/03/18 05/03/18 05/03/18 08:50 08:50 12:30 RBC 5.44 H MCV 73 L MCH 23.0 L MCHC 31.5 L RDW 14.7 H Glucose 112 H Ur Leukocyte Esterase TRACE H Urine Ascorbic Acid 40 H - EKG Interpretation by Me EKG shows normal: Sinus rhythm Rate: Normal Rhythm: NSR When compared to previous EKG there are: No significant change Discharge - Discharge Clinical Impression: Heart palpitations Chest pain Qualifiers: Chest pain type: unspecified Qualified Code(s): R07.9 - Chest pain, unspecified Condition: Stable Disposition: HOME, SELF-CARE Instructions: Angina Episode ([facility]), Nitrates ([facility]), Chest Pain of Unclear Cause ([facility]), Oral Narcotic Medication ([facility]) Additional Instructions: At this time Home and rest. As we discussed very important that you contact your second class welder at [employer] and follow-up with him sometime in the next few days. I think it would behoove you to go by and see him as soon as possible and discuss the possibilities of other medications for controlling this palpitation type presentation. Should you have any concerns or problems return to ER for a recheck. Forms: Elevated Blood Pressure Referrals: NAZARIO SNELL NP [Primary Care Provider] - Follow up as needed
[2018-05-03 13:35] LABS: APPEARANCE,URINE CLOUDY; BILIRUBIN,URINE NEGATIVE (NEGATIVE); COLOR,URINE YELLOW; GLUCOSE, URINE NEGATIVE (NEGATIVE); KETONES,URINE NEGATIVE (NEGATIVE); LEUKOCYTE ESTERASE,URINE TRACE (NEGATIVE); NITRITE,URINE NEGATIVE (NEGATIVE); PROTEIN,URINE NEGATIVE (NEGATIVE); UROBILINOGEN,URINE NEGATIVE mg/dL (<2.0)
[2018-05-03 13:58] LABS: URINE SPECIFIC GRAVITY 1.016
[2018-05-03 15:09] VITALS: BP 109/68
--- NOTE | 2018-05-03 19:50 | EKG REPORT ---
SEVERITY:- BORDERLINE ECG - SINUS RHYTHM PROBABLE LEFT ATRIAL ABNORMALITY : Confirmed by: Yesi Salgado MD 03-May-2018 19:50:23
== END 2018-05-03 15:50 | disposition home or self-care (01) ==
LOC: ER 08:02
DX: R00.2 Palpitations (principal); I49.3 Ventricular premature depolarization; R07.81 Pleurodynia; R07.89 Other chest pain; E66.01 Morbid (severe) obesity due to excess calories; Z68.44 Body mass index [BMI] 60.0-69.9, adult; E11.9 Type 2 diabetes mellitus without complications; I10 Essential (primary) hypertension; J44.9 Chronic obstructive pulmonary disease, unspecified; Z88.2 Allergy status to sulfonamides
CPT/HCPCS: 36415; 71046; 80053; 81001; 82550; 82553; 84443; 84484; 85025; 93005; 93010; 99285

== ENCOUNTER → 2018-08-09 | Outpatient (CLI) | payer OTHER ==
--- NOTE | 2018-08-09 13:34 | WOMENS IMAGING REPORT ---
EXAM DESCRIPTION: BILAT SCREENING MAMMO W/CAD COMPLETED DATE/TIME: 08/09/2018 12:59 pm REASON FOR STUDY: SCREENING MAMMO Z12.31 ENCNTR SCREEN MAMMOGRAM FOR MALIGNANT NEOPLASM OF [place] COMPARISON: 2015, 2017 TECHNIQUE: Standard craniocaudal and mediolateral oblique views of each breast recorded using digita l acquisition. LIMITATIONS: None. FINDINGS: No masses, calcifications or architectural distortion. No areas of suspicion. Read with the assistance of CAD. .[facility] - R2 Cenova Version 1.3 .[facility] Imaging - R2 Cenova Version 1.3 .[facility] - R2 Cenova Version 2.4 .[facility] - R2 Cenova Version 2.4 .[facility] - R2 Fiberglass Machine Operator Version 9.2 IMPRESSION: NORMAL MAMMOGRAM. BIRADS 1. BREAST DENSITY: a. The breasts are almost entirely fatty. BIRAD: 1 NEGATIVE RECOMMENDATION: ROUTINE SCREENING COMMENT: The patient has been notified of the results by letter per [place] requirements. Additional no tification policies are in place for contacting patient with suspicious or incomplete findings. Quality ID #225: The [employer] recommends an annual screening mammogram for women aged 40 years or over. This facility utilizes a reminder system to ensure that all patients receive reminder letters, and/or direct phone calls for appointments. This includes reminders for routine scr eening mammograms, diagnostic mammograms, or other Breast Imaging Interventions when appropriate. Th is patient will be placed in the appropriate reminder system. The [employer] (ACR) has developed recommendations for screening MRI of the breast s in certain patient populations, to be used in conjunction with mammography. Breast MRI surveillanc e may be appropriate for women with more than 20% lifetime risk of developing breast cancer as deter mined by genetic testing, significant family history of the disease, or history of mantle radiation f or Hodgkins Disease. ACR Practice Guidelines 2008. TECHNICAL DOCUMENTATION: FINDING NUMBER: (1) ASSESSMENT: (1) JOB ID: [id number] [employer]- All Rights Reserved Reading location - IP/workstation name: [email or web address]-[email or web address]
== END ==
LOC: WI 12:27
PROVIDERS: ATTEND Clinical Nurse Specialist Adult Health
DX: Z12.31 Encounter for screening mammogram for malignant neoplasm of breast (principal)
CPT/HCPCS: 77067

== ENCOUNTER 2018-10-24 09:06 | Day surgery (SDC) | payer OTHER ==
[2018-10-24] MEDS ORDERED: LIDOCAINE 1% INJ-PF (10 MG/ML) 30 ML SDV ONE (09:54)
[2018-10-24] MEDS ORDERED: EPINEPHRINE INJ/PF 1 MG/1 ML AMPULE ONE (09:54)
[2018-10-24] MEDS ORDERED: CHONDR SU A NA/HYALUR INTRAOC KIT (SURGICARE) ONE (09:54)
[2018-10-24] MEDS: CYCLOPENTOLATE 0.2%/PHENYLEPHRINE 1% OPH SOLN 2 ML OD PRN ×3 (10:05→10:32)
[2018-10-24] MEDS: TROPICAMIDE 1% OPH SOLN 3 ML OD PRN ×3 (10:05→10:32)
[2018-10-24] MEDS: BESIFLOXACIN HCL 0.6% OPH SUSP 5 ML BOTTLE OD PRN ×4 (10:06→11:18)
[2018-10-24] MEDS: TETRACAINE HCL 0.5% OPH SOLN 0.6 ML DROPERETTE OD PRN ×2 (10:07→10:33)
[2018-10-24] MEDS: DORZOLAMIDE HCL 2%/TIMOLOL MALEAT 0.5% OPH SOLN 10 ML OD PRN ×2 (11:08→11:18)
--- NOTE | 2018-10-24 11:29 | SURGICARE OPERATIVE REPORT E ---
[facility] Operative Report NAME: TEVIN BROWN AGE: 63Y DATE OF SURGERY: 10/24/2018 ROOM: PREOPERATIVE DIAGNOSIS: CATARACT, RIGHT EYE. POSTOPERATIVE DIAGNOSIS: CATARACT, RIGHT EYE. PROCEDURE PERFORMED: PHACOEMULSIFICATION WITH POSTERIOR CHAMBER INTRAOCULAR LENS, RIGHT EYE. SURGEON: SERGIO ALVAREZ MD ANESTHESIA: TOPICAL WITH MAC. INDICATIONS FOR SURGERY: Difficulty reading road signs. PROCEDURE: The patient was brought to the Operating Room and placed on the operative table. Following tetracaine drops, topical anesthesia was administered. This consisted of instrument wipe pledgets soaked in a solution of 4% Xylocaine mixed with 0.75% Marcaine in a 1:2 ratio. A 2 x 1 cm pledget was placed in the superior fornix. A 1 x 1 cm pledget was placed in the inferior fornix. The eye was patched shut for 5 minutes. The patch was removed. The eye was sterilely prepped and draped in the usual manner. Lid speculum was placed in the eye. The pledgets were removed. 4-0 black silk sutures were placed around the superior and the inferior rectus muscles to be used as traction. A conjunctival peritomy was made at the 10 o'clock position. Hemostasis was obtained with bipolar cautery. A posterior limbal groove was created using a crescent knife and dissected anteriorly towards the cornea. A sharp point blade was used to create a paracentesis site at the 2 o'clock position. A 2.4 mm keratome was used to enter the anterior chamber through the groove. Viscoelastic was injected into the anterior chamber. An anterior capsulotomy was performed using Utrata forceps in a capsulorrhexis fashion. Hydrodissection and hydrodelineation were performed. Phacoemulsification was performed in tymvml-cgd-ddujcgl technique. A total of 38 seconds phaco time was used. Following this, the I/A unit was used to remove residual cortex. Viscoelastic was injected into the capsular bag. Intraocular lens model [id number], 18.0 diopters, serial number [id number] was placed in the capsular bag. The I/A unit was used to remove residual viscoelastic. The wound was seen to be watertight under high and low pressure, and no sutures were placed. The intraocular lens was well centered. The pressure was adjusted in the eye to normal pressure. The 4-0 black silk sutures and lid speculum were removed. The eye was shielded after Besivance drops were placed. The patient tolerated the procedure well and was sent to the Recovery Room in good condition. DICTATING PHYSICIAN: SERGIO ALVAREZ M.D. DICTATING PHYSICIAN: SERGIO ALVAREZ M.D. [id number] PHY#: [id number] ID: [id number] JOB#: [id number] ACCT: [id number] cc:SERGIO ALVAREZ M.D. >
--- NOTE | 2018-10-24 11:29 | SURGICARE DISCHARGE SUMMARY E ---
[facility] Discharge Summary NAME: TEVIN BROWN AGE: 63Y ADMITTED: 10/24/2018 DISCHARGED: 10/24/2018 FINAL DIAGNOSIS: CATARACT, RIGHT EYE HOSPITAL COURSE: The patient is a 63-year-old lady who underwent uneventful cataract extraction with intraocular lens implant, right eye on 10/24/2018. She will be discharged to home. She is instructed to resume preoperative medications, take Tylenol as needed for discomfort, to keep her eye shielded, to use Predforte, Ketorolac, and Vigamox at 3 p.m. and 8 p.m., and to follow up in my office in 1 day. DICTATING PHYSICIAN: SERGIO ALVAREZ M.D. [id number] PHY#: [id number] ID: [id number] JOB#: [id number] ACCT: [id number] cc:SERGIO ALVAREZ M.D. >
[2018-10-24] MEDS ORDERED: MIDAZOLAM 2 MG/2 ML INJ ONE (11:34)
[2018-10-24] MEDS ORDERED: FENTANYL CITRATE INJ/PF 100 MCG/2 ML AMPUL ONE (12:01)
== END 2018-10-24 11:50 | disposition home or self-care (01) ==
LOC: SC 09:06
PROVIDERS: ATTEND Ophthalmology
DX: H25.811 Combined forms of age-related cataract, right eye (principal); H04.123 Dry eye syndrome of bilateral lacrimal glands; Z96.1 Presence of intraocular lens; E11.9 Type 2 diabetes mellitus without complications; I10 Essential (primary) hypertension; E78.00 Pure hypercholesterolemia, unspecified; E66.9 Obesity, unspecified; D64.9 Anemia, unspecified; Z88.2 Allergy status to sulfonamides; Z79.899 Other long term (current) drug therapy; Z79.84 Long term (current) use of oral hypoglycemic drugs; Z79.82 Long term (current) use of aspirin; Z68.44 Body mass index [BMI] 60.0-69.9, adult
CPT/HCPCS: 66984; 82962; V2632; J2250; J3490 ×4; J0171; J3010; 142

== ENCOUNTER → 2019-02-16 | Outpatient (CLI) | payer OTHER ==
--- NOTE | 2019-02-16 10:45 | WOMENS IMAGING REPORT ---
EXAM DESCRIPTION: RIGHT DIAGNOSTIC MAMMO W/CAD; U/S BREAST UNILAT LIMITED COMPLETED DATE/TIME: 02/16/2019 10:01 am; 02/16/2019 10:27 am REASON FOR STUDY: N64.4 MASTODYNIA; RT BREAST PAIN N64.4 MASTODYNIA COMPARISON: 08/09/2018 and 08/05/2017. EXAM PARAMETERS: Standard craniocaudal and mediolateral oblique images of the breast recorded with d igital acquisition. Additional true lateral images acquired. Read with the assistance of CAD. .[facility] - R2 Propagator Version 9.2 LIMITATIONS: None. FINDINGS: BREAST LATERALITY: right MASSES: No suspicious masses. CALCIFICATIONS: No new or suspicious calcifications. ARCHITECTURAL DISTORTION: None. DEVELOPING DENSITY: None. ASYMMETRY: None noted. OTHER: No other significant findings. BREAST ULTRASOUND: TECHNIQUE: Static and dynamic grayscale images acquired of the right breast in the specific areas of clinical/mammographic concern. Selected color Doppler images recorded. ELASTOGRAPHY PERFORMED: No. LIMITATIONS: None. FINDINGS: MASS: No mass identified. Normal glandular tissue. ELASTOGRAPHY CHARACTERISTICS: Not applicable. OTHER: No other significant finding. IMPRESSION: Stable mammographic appearance of the right breast. No worrisome mammographic or sonogr aphic findings in the area of concern. BREAST DENSITY: b. There are scattered areas of fibroglandular density. BIRAD: ASSESSMENT: 1 Negative. RECOMMENDATION: RECOMMENDED FOLLOW UP: Birads 1 or 2: No breast imaging finding to explain the patie nt's presenting complaint. Further intervention should be based on the degree of clinical suspicion. SPECIFIC INTERVENTION/IMAGING/CONSULTATION RECOMMENDED:No additional intervention/ imaging/consultati on needed at this time. COMMUNICATION:The imaging findings were not discussed with the patient. Her referring provider has be en notified of the findings. COMMENT: The patient has been notified of the results by letter per MQSA requirements. Additional no tification policies are in place for contacting patient with suspicious or incomplete findings. Quality ID #225: The [employer] recommends an annual screening mammogram for women aged 40 years or over. This facility utilizes a reminder system to ensure that all patients receive reminder letters, and/or direct phone calls for appointments. This includes reminders for routine scr eening mammograms, diagnostic mammograms, or other Breast Imaging Interventions when appropriate. Th is patient will be placed in the appropriate reminder system. TECHNICAL DOCUMENTATION: FINDING NUMBER: (1) ASSESSMENT: (1) JOB ID: [id number] [email or web address]- All Rights Reserved Reading location - IP/workstation name: [email or web address]
--- NOTE | 2019-02-16 10:45 | WOMENS IMAGING REPORT ---
EXAM DESCRIPTION: RIGHT DIAGNOSTIC MAMMO W/CAD; U/S BREAST UNILAT LIMITED COMPLETED DATE/TIME: 02/16/2019 10:01 am; 02/16/2019 10:27 am REASON FOR STUDY: N64.4 MASTODYNIA; RT BREAST PAIN N64.4 MASTODYNIA COMPARISON: 08/09/2018 and 08/05/2017. EXAM PARAMETERS: Standard craniocaudal and mediolateral oblique images of the breast recorded with d igital acquisition. Additional true lateral images acquired. Read with the assistance of CAD. .[facility] - R2 Commercial Construction Project Manager Version 9.2 LIMITATIONS: None. FINDINGS: BREAST LATERALITY: right MASSES: No suspicious masses. CALCIFICATIONS: No new or suspicious calcifications. ARCHITECTURAL DISTORTION: None. DEVELOPING DENSITY: None. ASYMMETRY: None noted. OTHER: No other significant findings. BREAST ULTRASOUND: TECHNIQUE: Static and dynamic grayscale images acquired of the right breast in the specific areas of clinical/mammographic concern. Selected color Doppler images recorded. ELASTOGRAPHY PERFORMED: No. LIMITATIONS: None. FINDINGS: MASS: No mass identified. Normal glandular tissue. ELASTOGRAPHY CHARACTERISTICS: Not applicable. OTHER: No other significant finding. IMPRESSION: Stable mammographic appearance of the right breast. No worrisome mammographic or sonogr aphic findings in the area of concern. BREAST DENSITY: b. There are scattered areas of fibroglandular density. BIRAD: ASSESSMENT: 1 Negative. RECOMMENDATION: RECOMMENDED FOLLOW UP: Birads 1 or 2: No breast imaging finding to explain the patie nt's presenting complaint. Further intervention should be based on the degree of clinical suspicion. SPECIFIC INTERVENTION/IMAGING/CONSULTATION RECOMMENDED:No additional intervention/ imaging/consultati on needed at this time. COMMUNICATION:The imaging findings were not discussed with the patient. Her referring provider has be en notified of the findings. COMMENT: The patient has been notified of the results by letter per MQSA requirements. Additional no tification policies are in place for contacting patient with suspicious or incomplete findings. Quality ID #225: The [employer] recommends an annual screening mammogram for women aged 40 years or over. This facility utilizes a reminder system to ensure that all patients receive reminder letters, and/or direct phone calls for appointments. This includes reminders for routine scr eening mammograms, diagnostic mammograms, or other Breast Imaging Interventions when appropriate. Th is patient will be placed in the appropriate reminder system. TECHNICAL DOCUMENTATION: FINDING NUMBER: (1) ASSESSMENT: (1) JOB ID: [id number] [employer]- All Rights Reserved Reading location - IP/workstation name: [email or web address]
== END ==
LOC: WI 09:34
PROVIDERS: ATTEND Clinical Nurse Specialist Adult Health
DX: N64.4 Mastodynia (principal)
CPT/HCPCS: 76642

== ENCOUNTER 2019-04-19 14:00 | Emergency (ER) | payer OTHER, MEDICARE ==
[2019-04-19 14:59] LABS: ABSOLUTE EOSINOPHILS # (AUTO) 0.1 10^3/uL (0.0-0.6); ABSOLUTE LYMPHOCYTES (AUTO) 2.1 10^3/uL (0.5-4.7); ABSOLUTE MONOCYTES (AUTO) 0.6 10^3/uL (0.1-1.4); ABSOLUTE NEUT (AUTO) 3.4 10^3/uL (1.7-8.2); BASOPHILS % (AUTO) 0.6 % (0-2); HEMATOCRIT 39.5 % (36.0-47.0); HEMOGLOBIN 12.3 g/dL (12.0-15.5); LYMPHOCYTES % (AUTO) 33.5 % (13-45); MEAN CORPUSCULAR HEMOGLOBIN 22.8 pg (27.0-33.4); MEAN CORPUSCULAR HGB CONC 31.1 g/dL (32.0-36.0); MEAN CORPUSCULAR VOLUME 73 fl (80-97); MONOCYTES % (AUTO) 9.2 % (3-13); PLATELET COUNT 251 10^3/uL (150-450); RED BLOOD COUNT 5.39 10^6/uL (3.72-5.28); RED CELL DISTRIBUTION WIDTH 14.4 % (11.5-14.0); SEGMENTED NEUTROPHILS % (AUTO) 54.7 % (42-78); TOTAL CELLS COUNTED % (AUTO) 100 %; WHITE BLOOD COUNT 6.3 10^3/uL (4.0-10.5)
[2019-04-19 15:16] LABS: ALBUMIN 4.2 g/dL (3.5-5.0); ALKALINE PHOSPHATASE 91 U/L (38-126); ANION GAP 9 (5-19); ASPARTATE AMINO TRANSFERASE 19 U/L (14-36); BILIRUBIN,DIRECT 0.1 mg/dL (0.0-0.4); BILIRUBIN,TOTAL 0.3 mg/dL (0.2-1.3); BLOOD UREA NITROGEN 15 mg/dL (7-20); CARBON DIOXIDE 29 mmol/L (22-30); CHLORIDE 102 mmol/L (98-107); CREATINE KINASE 55 U/L (30-135); GLUCOSE 97 mg/dL (75-110); POTASSIUM 4.2 mmol/L (3.6-5.0); TOTAL PROTEIN 7.3 g/dL (6.3-8.2)
[2019-04-19 15:28] LABS: CREATINE KINASE MB 0.39 ng/mL (<4.55); TROPONIN I < 0.012 ng/mL
--- NOTE | 2019-04-19 15:31 | ER Document Report ---
ED Dizziness/Weakness - General Chief Complaint: Near Syncope Stated Complaint: POSSIBLE SYNCOPE Time Seen by Provider: 04/19/19 15:15 Primary Care Provider: JOJO [Other] - Follow up as needed Information source: Patient Notes: HPI: Patient is a 63-year-old female that presents today after she had an episode while sitting up feeling lightheaded, nausea, and sweaty. Patient also states some pain to the right lower back. She also states a mild frontal headache without blurry vision, weakness or numbness. No neck pain, chest pain, palpitations, initially denies any abdominal pain. No dysuria, with one bout of nonbloody diarrhea earlier today. ROS: See HPI All other review of systems reviewed and otherwise negative Reviewed vital signs and nursing note as charted by RN. PHYSICAL EXAM: CONSTITUTIONAL: Alert and oriented and responds appropriately to questions. Well-appearing; well-nourished HEAD: Normocephalic; atraumatic EYES: PERRL; sclerae non-icteric ENT: Normal nose; no rhinorrhea; moist mucous membranes; pharynx without lesions noted NECK: Supple without meningismus; non-tender; no cervical lymphadenopathy, no masses CARD: Regular rate and rhythm; no murmurs; symmetric distal pulses RESP: Normal chest excursion without splinting or tachypnea; breath sounds clear and equal bilaterally; no wheezes, no rhonchi, no rales ABD/GI: Normal bowel sounds; elevated BMI; soft, very mildly tender the epigastric region with no rebound or guarding. No palpable masses or abdominal bruits. Negative right upper quadrant Rodriguez sign; no palpable organomegaly or masses BACK: The back appears normal and is non-tender to palpation along the midline spine. Patient does have some mild right lower back tenderness with any swelling or erythema EXT: Normal ROM in all joints; non-tender to palpation; no edema SKIN: No acute lesions noted NEURO: CN 2-12 intact; 5/5 bilateral upper and lower extremity strength with sensation intact to light touch PSYCH: The patient's mood and manner are appropriate. Grooming and personal hygiene are appropriate. TRAVEL OUTSIDE OF THE [place] IN LAST 30 DAYS: No - Related Data Allergies/Adverse Reactions: Sulfa (Sulfonamide Antibiotics) Allergy (Unknown, Verified 05/03/18 08:10) peach [[place]] Adverse Reaction (Verified 05/03/18 08:10) RASH Past Medical History - Social History Smoking Status: Former Smoker Chew tobacco use (# tins/day): No Frequency of alcohol use: None Drug Abuse: None Family History: Reviewed & Not Pertinent, DM, Hypertension Patient has suicidal ideation: No Patient has homicidal ideation: No - Past Medical History Cardiac Medical History: Reports: Hx Hypercholesterolemia, Hx Hypertension Denies: Hx Heart Attack Pulmonary Medical History: Denies: Hx Asthma Neurological Medical History: Reports: Hx Migraine. Denies: Hx Cerebrovascular Accident, Hx Seizures Endocrine Medical History: Reports: Hx Diabetes Mellitus Type 2 Renal/ Medical History: Denies: Hx Peritoneal Dialysis GI Medical History: Denies: Hx Hepatitis, Hx Hiatal Hernia, Hx Ulcer Musculoskeletal Medical History: Reports Hx Arthritis Psychiatric Medical History: Denies: Hx Depression Infectious Medical History: Denies: Hx Hepatitis Past Surgical History: Reports: Hx Hysterectomy. Denies: Hx Mastectomy, Hx Open Heart Surgery, Hx Pacemaker - Immunizations Hx Diphtheria, Pertussis, Tetanus Vaccination: No Hx Pneumococcal Vaccination: 03/26/17 Physical Exam - Vital signs Vitals: Temp Resp BP Pulse Ox 98.4 F 21 H 117/85 100 04/19/19 15:00 04/19/19 15:00 04/19/19 15:00 04/19/19 15:00 Course - Re-evaluation Re-evalutation: Given the above history and physical, we will obtain basic labs, EKG, cardiac labs, urine analysis, CT scan of the head, liver panel and lipase, and reassess. I would like to evaluate for the possibility of an intracerebral lesion, cardiac abnormality, pancreatitis, urinary tract infection/pyelonephritis. 04/19/19 15:30 Labs initially as recorded. 04/19/19 15:48 EKG shows a heart of 77, normal sinus rhythm, normal axis, no ST elevation or depression 04/19/19 17:18 Labs and initial imaging as recorded. Patient still denies any pain at this time. Given the time course of onset of the headache with the lightheadedness, with no family history of connective tissue disease, cerebral aneurysms, or polycystic kidney disease, the CT scan should be almost 100% sensitive for subarachnoid hemorrhage. Still no focal neurological deficits. Awaiting the urine analysis. 04/19/19 19:06 Urine analysis shows no infection. A liter of fluid has been provided. Patient states she is feeling better. No headache or dizziness at this time. Repeat troponin is unremarkable. EKG was unremarkable. Given the above history and physical, patient will be discharged home with strict return precautions and follow-up with the primary provider. - Vital Signs Vital signs: Temp Pulse Resp BP Pulse Ox 98.5 F 20 116/66 98 04/19/19 18:00 04/19/19 18:30 04/19/19 18:30 04/19/19 18:30 - Laboratory Result Diagrams: 04/19/19 14:45 04/19/19 14:45 Laboratory results interpreted by me: 04/19/19 04/19/19 14:45 18:05 RBC 5.39 H MCV 73 L MCH 22.8 L MCHC 31.1 L RDW 14.4 H Urine Ascorbic Acid 40 H Discharge - Discharge Clinical Impression: Nausea, Lightheadedness Condition: Good Disposition: HOME, SELF-CARE Additional Instructions: Come back immediately for any return of lightheadedness, dizziness, chest pain, weakness or numbness, nausea, vomiting, fevers, or any other acute problems. Please follow-up with the primary care physician as discussed. Referrals: JOJO [Other] - Follow up as needed
--- NOTE | 2019-04-19 16:45 | RADIOLOGY REPORT (SQ) ---
EXAM DESCRIPTION: CT HEAD WITHOUT COMPLETED DATE/TIME: 04/19/2019 4:32 pm REASON FOR STUDY: 16; headache and presyncope COMPARISON: None. TECHNIQUE: Axial images acquired through the brain without intravenous contrast. Images reviewed wi th bone, brain and subdural windows. Additional sagittal and coronal reconstructions were generated. Images stored on PACS. All CT scanners at this facility use dose modulation, iterative reconstruction, and/or weight based d osing when appropriate to reduce radiation dose to as low as reasonably achievable (ALARA). [facility]: Dose Right [facility]: CareDose [facility]: Dose Right [facility]: Teradose 4D [facility]: [employer] RADIATION DOSE: CT Rad equipment meets quality standard of care and radiation dose reduction techniq ues were employed. CTDIvol: 53.2 mGy. DLP: 911 mGy-cm. mGy. LIMITATIONS: None. FINDINGS: VENTRICLES: Normal size and contour. CEREBRUM: No masses. No hemorrhage. No midline shift. No evidence for acute infarction. Normal gra y/white matter differentiation. No areas of low density in the white matter. CEREBELLUM: No masses. No hemorrhage. No alteration of density. No evidence for acute infarction. EXTRAAXIAL SPACES: No fluid collections. No masses. ORBITS AND GLOBE: No intra- or extraconal masses. Normal contour of globe without masses. CALVARIUM: No fracture. PARANASAL SINUSES: No fluid or mucosal thickening. SOFT TISSUES: No mass or hematoma. OTHER: No other significant finding. IMPRESSION: NORMAL BRAIN CT WITHOUT CONTRAST. EVIDENCE OF ACUTE STROKE: NO. COMMENT: Quality ID # [id number]: Final reports with documentation of one or more dose reduction techniques (e.g., Automated exposure control, adjustment of the mA and/or kV according to patient size, use of iterative reconstruction technique) TECHNICAL DOCUMENTATION: JOB ID: [id number] [employer]- All Rights Reserved Reading location - IP/workstation name: [email or web address]
[2019-04-19] MEDS ORDERED: NORMAL SALINE 1000 ML 1,000 ML IV ONE (17:20)
[2019-04-19 18:27] LABS: APPEARANCE,URINE SLIGHTLY-CLOUDY; BILIRUBIN,URINE NEGATIVE (NEGATIVE); COLOR,URINE YELLOW; GLUCOSE, URINE NEGATIVE (NEGATIVE); KETONES,URINE NEGATIVE (NEGATIVE); LEUKOCYTE ESTERASE,URINE NEGATIVE (NEGATIVE); NITRITE,URINE NEGATIVE (NEGATIVE); PROTEIN,URINE NEGATIVE (NEGATIVE); URINE SPECIFIC GRAVITY 1.016; UROBILINOGEN,URINE NEGATIVE mg/dL (<2.0)
[2019-04-19] MEDS ORDERED: ACETAMINOPHEN 325 MG TABLET PO ONE (19:10)
[2019-04-19 21:07] VITALS: BP 120/79
--- NOTE | 2019-04-20 09:06 | EKG REPORT ---
SEVERITY:- NORMAL ECG - SINUS RHYTHM : Confirmed by: Shay Weiner 20-Apr-2019 09:05:50
== END 2019-04-19 21:07 | disposition home or self-care (01) ==
LOC: ER 14:00
DX: R11.0 Nausea (principal); R42 Dizziness and giddiness; R61 Generalized hyperhidrosis; M54.5 Low back pain; Z87.891 Personal history of nicotine dependence; I10 Essential (primary) hypertension; E11.9 Type 2 diabetes mellitus without complications
CPT/HCPCS: 93005; 99284; 96360; 36415; 82553; 82550; 83690; 85025; 80053; 81001; 84484; 70450; 93010; J7030

== ENCOUNTER 2019-05-26 15:45 | Emergency (ER) | payer OTHER, MEDICARE ==
--- NOTE | 2019-05-26 16:24 | ER Document Report ---
ED Medical Screen (RME) - General Chief Complaint: Hip Pain Stated Complaint: LEFT HIP PAIN Time Seen by Provider: 05/26/19 16:19 Mode of Arrival: Wheelchair Information source: Patient Notes: 63-year-old female presented to ED for complaint of left hip pill. She states this started back in February and now the pain shoots all the way down to her ankle. Patient is alert oriented respirations regular and unlabored speaking in full sentences. Patient denies any frequency urgency or burning. Patient states standing makes her pain worse. Patient denies any loss of control of bowel bladder, saddle anesthesia, or loss of sensation or control of the lower extremities. Patient states she does have diabetes high blood pressure irregular heartbeat. I have greeted and performed a rapid initial assessment of this patient. A comprehensive ED assessment and evaluation of the patient, analysis of test results and completion of medical decision making process will be conducted by an additional ED providers. TRAVEL OUTSIDE OF THE [place] IN LAST 30 DAYS: No - Related Data Allergies/Adverse Reactions: Sulfa (Sulfonamide Antibiotics) Allergy (Unknown, Verified 05/03/18 08:10) peach [[place]] Adverse Reaction (Verified 05/03/18 08:10) RASH Past Medical History - Past Medical History Cardiac Medical History: Reports: Hx Hypercholesterolemia, Hx Hypertension Denies: Hx Heart Attack Pulmonary Medical History: Denies: Hx Asthma Neurological Medical History: Reports: Hx Migraine. Denies: Hx Cerebrovascular Accident, Hx Seizures Endocrine Medical History: Reports: Hx Diabetes Mellitus Type 2 Renal/ Medical History: Denies: Hx Peritoneal Dialysis GI Medical History: Denies: Hx Hepatitis, Hx Hiatal Hernia, Hx Ulcer Musculoskeltal Medical History: Reports Hx Arthritis Psychiatric Medical History: Denies: Hx Depression Infectious Medical History: Denies: Hx Hepatitis Past Surgical History: Reports: Hx Hysterectomy. Denies: Hx Mastectomy, Hx Open Heart Surgery, Hx Pacemaker - Immunizations Hx Diphtheria, Pertussis, Tetanus Vaccination: No Physical Exam - Vital signs Vitals: Temp Pulse Resp BP Pulse Ox 98.0 F 102 H 11 L 122/72 97 05/26/19 16:05 05/26/19 16:05 05/26/19 16:05 05/26/19 16:05 05/26/19 16:05 Course - Vital Signs Vital signs: Temp Pulse Resp BP Pulse Ox 98.0 F 102 H 11 L 122/72 97 05/26/19 16:05 05/26/19 16:05 05/26/19 16:05 05/26/19 16:05 05/26/19 16:05
--- NOTE | 2019-05-26 17:48 | RADIOLOGY REPORT (SQ) ---
EXAM DESCRIPTION: L SPINE WHOLE COMPLETED DATE/TIME: 05/26/2019 5:33 pm REASON FOR STUDY: Low back pain radiating down left leg COMPARISON: None. NUMBER OF VIEWS: Five views including obliques. TECHNIQUE: AP, lateral, oblique, and sacral radiographic images acquired of the lumbar spine. LIMITATIONS: None. FINDINGS: MINERALIZATION: Normal. SEGMENTATION: S1 level transitional anatomy. ALIGNMENT: Normal. VERTEBRAE: Maintained height. No fracture or worrisome bone lesion. DISCS: Multilevel disc space narrowing with osteophytes. POSTERIOR ELEMENTS: Pedicles and facets are intact. No pars defect or posterior arch defects. Facet arthropathy is present. HARDWARE: None in the spine. PARASPINAL SOFT TISSUES: Normal. PELVIS: Intact as visualized. No fractures or worrisome bone lesions. SI joints intact. OTHER: No other significant finding. IMPRESSION: SPONDYLOSIS WITHOUT BONE LESION OR FRACTURE. TECHNICAL DOCUMENTATION: JOB ID: [id number] [place]-72 2010 [employer]- All Rights Reserved Reading location - IP/workstation name: [email or web address]
[2019-05-26 18:04] LABS: APPEARANCE,URINE CLOUDY; BILIRUBIN,URINE NEGATIVE (NEGATIVE); COLOR,URINE YELLOW; GLUCOSE, URINE NEGATIVE (NEGATIVE); KETONES,URINE NEGATIVE (NEGATIVE); PROTEIN,URINE NEGATIVE (NEGATIVE); URINE SPECIFIC GRAVITY 1.017; UROBILINOGEN,URINE NEGATIVE mg/dL (<2.0)
[2019-05-26] MEDS ORDERED: NAPROXEN 250 MG TABLET PO ONE (18:43)
[2019-05-26] MEDS ORDERED: METHOCARBAMOL 500 MG TABLET PO ONE (18:43)
--- NOTE | 2019-05-26 18:43 | ER Document Report ---
HPI - HPI Time Seen by Provider: 05/26/19 16:19 Pain Level: 3 Context: Patient is a 63-year-old female with a history of hypertension, high cholesterol, diabetes who presents the emergency department with a chief complaint of left hip pain. Patient reports she has had left hip pain since February. Patient reports at that time she did not have an injury or a fall. Patient reports she does do water aerobics and continues to do so until 2 weeks ago. Patient reports 2 weeks ago the pain in her left hip increased and did start to radiate down the leg. Patient reports standing and applying pressure to the left leg seems to make the pain worse. Patient reports laying flat on her back seems to make the pain better. Patient reports she has not taken anything for her discomfort. Patient denies loss of bowel or bladder. Patient reports intermittent numbness down the left leg. Patient denies numbness or tingling around the groin or rectal area. Patient states she did not have an injury 2 weeks ago. Patient reports she did see the [facility] who sent her here for an evaluation. She states that she is waiting for a MRI and orthopedic referral. Patient states she used to take Robaxin for muscle spasm but has not tried this for or any type of medication for the discomfort she is having. - REPRODUCTIVE Reproductive: DENIES: : Past Medical History - General Information source: Patient - Social History Smoking Status: Never Smoker Chew tobacco use (# tins/day): No Frequency of alcohol use: None Drug Abuse: None Lives with: Family Family History: Reviewed & Not Pertinent, DM, Hypertension Patient has suicidal ideation: No Patient has homicidal ideation: No - Past Medical History Cardiac Medical History: Reports: Hx Hypercholesterolemia, Hx Hypertension Denies: Hx Heart Attack Pulmonary Medical History: Reports: None Denies: Hx Asthma EENT Medical History: Reports: None Neurological Medical History: Reports: Hx Migraine. Denies: Hx Cerebrovascular Accident, Hx Seizures Endocrine Medical History: Reports: Hx Diabetes Mellitus Type 2 Renal/ Medical History: Reports: None. Denies: Hx Peritoneal Dialysis Malignancy Medical History: Reports: None GI Medical History: Reports: None. Denies: Hx Hepatitis, Hx Hiatal Hernia, Hx Ulcer Musculoskeletal Medical History: Reports Hx Arthritis Skin Medical History: Reports None Psychiatric Medical History: Reports: None Denies: Hx Depression Traumatic Medical History: Reports: None Infectious Medical History: Reports: None. Denies: Hx Hepatitis Past Surgical History: Reports: Hx Hysterectomy. Denies: Hx Mastectomy, Hx Open Heart Surgery, Hx Pacemaker - Immunizations Hx Diphtheria, Pertussis, Tetanus Vaccination: No Hx Pneumococcal Vaccination: 03/26/17 Vertical Provider Document - CONSTITUTIONAL Agree With Documented VS: Yes Exam Limitations: No Limitations General Appearance: No Apparent Distress - INFECTION CONTROL TRAVEL OUTSIDE OF THE [place] IN LAST 30 DAYS: No - HEENT HEENT: Atraumatic, Normocephalic, PERRLA - NECK Neck: Normal Inspection - RESPIRATORY Respiratory: Breath Sounds Normal, No Respiratory Distress - CARDIOVASCULAR Cardiovascular: Regular Rate, Regular Rhythm - GI/ABDOMEN Gastrointestinal: Abdomen Soft, Abdomen Non-Tender Notes: Obese - BACK Notes: Patient does not have any cervical or thoracic midline tenderness. Patient does have tenderness to the left hip and midline tenderness to the lumbar spine. - MUSCULOSKELETAL/EXTREMETIES Notes: 5 out of 5 strength both distally and proximally bilateral lower extremities. 2+ patellar reflexes bilaterally. No clonus. Sensation grossly intact in the bilateral lower extremities. Patient is able to ambulate with a cane. - NEURO Level of Consciousness: Awake, Alert, Appropriate - DERM Integumentary: Warm, Dry, No Rash Course - Re-evaluation Re-evalutation: 05/26/19 18:50 Patient symptoms appear chronic since February with worsening over the past 2 w eeks. Patient denies injury or a fall. Patient's lumbar x-ray did show spondylosis consistent with arthritis. Patient states she does have a pending MRI and orthopedic referral. I will place the patient on Robaxin as well as naproxen and anti-inflammatory. Patient states she has not had anything for her discomfort over the past 2 weeks. I did give the patient strict return precautions for any new numbness or tingling down her leg, loss of bowel or bladder, numbness around her groin or rectum or any new or worsening symptoms. Patient verbalized understanding and is in agreement with discharge plan. - Vital Signs Vital signs: Temp Pulse Resp BP Pulse Ox 98.0 F 102 H 11 L 122/72 97 05/26/19 16:05 05/26/19 16:05 05/26/19 16:05 05/26/19 16:05 05/26/19 16:05 - Laboratory Laboratory results interpreted by me: 05/26/19 16:40 Leukocyte Esterase Rfl SMALL H Urine Ascorbic Acid 40 H - Diagnostic Test Radiology reviewed: Reports reviewed Radiology results interpreted by me: 05/26/19 18:45 Lumbar Spine X-Ray 05/26/19 16:25 IMPRESSION: SPONDYLOSIS WITHOUT BONE LESION OR FRACTURE. Discharge - Discharge Clinical Impression: Sciatic leg pain Condition: Stable Disposition: HOME, SELF-CARE Additional Instructions: *Today was in the emergency department for left hip and leg pain. Your symptoms are suggestive of sciatica. If this is a type of pain that typically radiates down the leg and can cause numbness in the foot or calf. This is due to an irritation of the sciatic nerve. Please rest in your position of comfort. And placing you on oral muscle relaxers called Robaxin. Do not drive on these medications as he can make you drowsy. I am placing you on naproxen as well. Naproxen as an anti-inflammatory. This does have the ability to upset your stomach so please take with food. *Please follow-up with your primary care physician on Wednesday to ensure that she is placing the orthopedic and MRI referral. Sciatica Your symptoms suggest "sciatica." The pain of sciatica typically radiates down the leg. Numbness in the foot or calf may also occur. Sciatica is caused by irritation of the sciatic nerve or its branches. The irritation can be due to a herniated disk in the spine, swelling and inflammation in the muscles surrounding the sciatic nerve, or direct injury of the nerve itself. Most cases of sciatica will resolve with medical treatment. Bed rest is usually recommended initially. Surgery is only necessary when the condition will not improve with rest and antiinflammatory medication. Muscle relaxers are often given if muscle soreness is present. A CAT scan of the back may be performed if a herniated disk is suspected. Re-examination is necessary if you develop increasing numbness, localized weakness in the foot or ankle, or if the pain does not respond to rest. LOW BACK PAIN: Three out of every four people will have an episode of disabling back pain during their lifetime. Most commonly the pain is due to straining of the muscles and ligaments in the low back. Usual treatment includes: (1) Rest on a firm surface. Avoid lying on your stomach. (2) Ice pack the painful area. After a few days, gentle heat may be used intermittently to relax the area, or ice packs can be continued. (3) Medication may be needed -- muscle relaxers and antiinflammatory medicines are commonly used. (4) As the back improves, exercises are prescribed to strengthen the back and abdominal muscles. Your doctor will advise you on the proper care for your back at each stage in your recovery. You may be better in a few days -- or healing may take several weeks. If new symptoms of a "herniated disc" (radiation of pain, numbness, or tingling down the back of the leg or weakness in the leg) occur, you should be re-examined. Further testing may be necessary. MUSCLE RELAXERS: Muscle relaxing medications are usually prescribed for acute muscle spasm or injury to the neck and back. They are often combined with antiinflammatory pain medication for increased relief. You may stop the muscle relaxer when the pain and stiffness have improved. Start the medication again if spasms recur. Muscle relaxers may cause drowsiness, especially with the first dose. Do not operate machinery or drive while under the effects of the medication. Most muscle relaxers last up to 24 hours. Do not combine the medication with alcohol. ICE PACKS: Apply ice packs frequently against the painful area. Many different schedules are recommended, such as "20 minutes on, 20 minutes off" or "one hour ice, two hours rest." If you need to work, you may need to go longer between ice treatments. You should plan to have the area ice packed AT LEAST one fourth of the time. The ice should be applied over the wrap, tape, or splint, or over a layer of cloth -- not directly against the skin. Some ice bags have a built-in cloth and can be put directly on the skin. WARM PACKS: After approximately two days, apply gentle heat (such as a heating pad or hot water bottle) for about 20 to 30 minutes about every two hours -- at least four times daily. Warmth and elevation will help you make a more rapid recovery, and will ease the pain considerably. Do not use HOT heat, and never apply heat for longer than 30 minutes. The continuous heat can invisibly damage skin and muscles -- even when no burn is seen on the surface. Damaged muscles can make you MORE sore. FOLLOW-UP CARE: If you have been referred to a physician for follow-up care, call the physician s office for an appointment as you were instructed or within the next two days. If you experience worsening or a significant change in your symptoms, notify the physician immediately or return to the Emergency Department at any time for re- evaluation. Prescriptions: Naproxen [Naprosyn] 500 mg PO BID PRN #14 tablet PRN Reason: Methocarbamol [Robaxin 500 mg Tablet] 1,000 mg PO QID PRN #24 tablet PRN Reason:
[2019-05-26 19:07] VITALS: BP 111/60
== END 2019-05-26 19:08 | disposition home or self-care (01) ==
LOC: ER 15:45
DX: M54.30 Sciatica, unspecified side (principal); M25.552 Pain in left hip; M47.9 Spondylosis, unspecified; R20.0 Anesthesia of skin; I10 Essential (primary) hypertension; E11.9 Type 2 diabetes mellitus without complications
CPT/HCPCS: 72110; 81001; 87086; 99283

== ENCOUNTER → 2019-10-04 | Outpatient (CLI) | payer OTHER ==
--- NOTE | 2019-10-04 15:22 | RADIOLOGY REPORT (SQ) ---
EXAM DESCRIPTION: MRILLJ WO COMPLETED DATE/TIME: 10/04/2019 9:06 am REASON FOR STUDY: LEFT HIP PAIN COMPARISON: None. TECHNIQUE: Noncontrast multiplanar MR imaging. Sequences include wide field of view pelvis and focu sed hip of interest. Fat sensitive, water sensitive, and cartilage sensitive sequences. Specific hip of interest: Left LIMITATIONS: Habitus and motion artifact. Dedicated images of the left hip are therefore moderately limited. FINDINGS: MARROW SIGNAL: Mild endplate marrow edema related to the L4-5 disc. No significant findin gs in the pelvis or proximal femurs, however. SPECIFIC HIP OF INTEREST: No effusion. No AVN detected. No suggestion of bursitis or regional musc le tear. No large subchondral cysts. Mild joint space narrowing with mild osteophytes. OPPOSITE HIP: Normal. No effusion or other significant finding on limited sequences. REMAINDER OF THE OSSEOUS PELVIS: SI joints normal. Symphasis pubis intact. No Avulsion injury evide nt. INTRA- AND EXTRAPELVIC SOFT TISSUES: Fibroid uterus. No bladder pathology. No evidence of inguinal adenopathy or hernia. IMPRESSION: 1. Limited study. 2. Mild left hip degenerative changes but no evidence of acute or suspicious abnormality. 3. Other findings as above. Includes lumbar spondylosis. Reading location - IP/workstation name: [email or web address]
== END ==
LOC: RAD 09-29 13:22
PROVIDERS: ATTEND Clinical Nurse Specialist Adult Health
DX: M25.552 Pain in left hip (principal)

== ENCOUNTER 2019-12-12 06:12 | Emergency (ER) | payer OTHER, MEDICARE ==
[2019-12-12 06:36] VITALS: BP 137/57
[2019-12-12] MEDS ORDERED: KETOROLAC TROMETHAMINE INJ/PF 30 MG/1 ML SDV IV ONE (06:36)
[2019-12-12] MEDS ORDERED: LORAZEPAM INJ 2 MG/1 ML VIAL IV ONE (06:37)
--- NOTE | 2019-12-12 06:40 | ER Document Report ---
ED General - General Chief Complaint: Back Pain Stated Complaint: FALL,BACK PAIN Time Seen by Provider: 12/12/19 06:19 Primary Care Provider: NAZARIO SNELL NP [Primary Care Provider] - Follow up as needed Mode of Arrival: Medic Information source: Patient Notes: 64-year-old woman presents with a history of fall and her bathroom on 12/10/2019. Apparently lost her balance and fell hit her right rib cage against the sink. She continued to function well, using heat, muscle relaxant, and a massage of the area. She did well yesterday, however upon awaking this morning she had a difficult time moving and son had to help her get back to bed this morning. States that the pain "locked up". TRAVEL OUTSIDE OF THE [place] IN LAST 30 DAYS: No - Related Data Allergies/Adverse Reactions: Sulfa (Sulfonamide Antibiotics) Allergy (Unknown, Verified 05/03/18 08:10) peach [[place]] Adverse Reaction (Verified 05/03/18 08:10) RASH Past Medical History - Social History Smoking Status: Former Smoker Chew tobacco use (# tins/day): No Frequency of alcohol use: None Drug Abuse: None Family History: Reviewed & Not Pertinent, DM, Hypertension Patient has homicidal ideation: No - Past Medical History Cardiac Medical History: Reports: Hx Hypercholesterolemia, Hx Hypertension Denies: Hx Heart Attack Pulmonary Medical History: Denies: Hx Asthma Neurological Medical History: Reports: Hx Migraine. Denies: Hx Cerebrovascular Accident, Hx Seizures Endocrine Medical History: Reports: Hx Diabetes Mellitus Type 2 Renal/ Medical History: Denies: Hx Peritoneal Dialysis GI Medical History: Denies: Hx Hepatitis, Hx Hiatal Hernia, Hx Ulcer Musculoskeletal Medical History: Reports Hx Arthritis Psychiatric Medical History: Denies: Hx Depression Infectious Medical History: Denies: Hx Hepatitis Past Surgical History: Reports: Hx Hysterectomy. Denies: Hx Mastectomy, Hx Open Heart Surgery, Hx Pacemaker - Immunizations Hx Diphtheria, Pertussis, Tetanus Vaccination: No Hx Pneumococcal Vaccination: 03/26/17 Review of Systems - Review of Systems Notes: Constitutional: Negative for fever. HENT: Negative for sore throat. Eyes: Negative for visual changes. Cardiovascular: Negative for chest pain. Respiratory: Negative for shortness of breath. Gastrointestinal: Negative for abdominal pain, vomiting or diarrhea. Genitourinary: Negative for dysuria. Musculoskeletal: + Tenderness in the right lateral chest wall area. Skin: Negative for rash. Neurological: Negative for headaches, weakness or numbness. 10 point ROS negative except as marked above and in HPI. Physical Exam - Vital signs Vitals: Temp 97.8 F 12/12/19 06:19 - Notes Notes: PHYSICAL EXAMINATION: Physical Exam: General: Morbidly obese female in moderate distress secondary to pain in her right side. HEENT: NC/AT, pupils equal round and reactive to light, MM moist,nares clear, oropharynx clear, airway patent Neck: supple, no adenopathy, no masses. Good range of motion Lungs: clear, no wheezing, no rales no rhonchi Chest: Marked tenderness right lateral chest wall seventh/eighth rib area crepitus step-off CVS: Regular rate and rhythm no murmur gallop or rub Abdomen: Soft, active, nontender, no masses, no hepatosplenomegaly Ext: No edema, clubbing or cyanosis. Neuro: Alert and responsive, moving all 4 extremities on command, cranial nerves intact, no focal findings Skin: Intact no open lesions, no rash PSYCH: Normal mood, normal affect. Course - Re-evaluation Re-evalutation: 12/12/19 07:38 Patient really got mild relief with Toradol and Lorazepam, however states that the pain is still severe with movement. We will give her a dose of and analgesic pain medication. Patient states that she can call her son to pick her up. - Vital Signs Vital signs: Temp Pulse Resp BP Pulse Ox 97.9 F 90 16 137/57 H 96 12/12/19 06:35 12/12/19 06:35 12/12/19 06:35 12/12/19 06:35 12/12/19 06:35 - Diagnostic Test Radiology reviewed: Image reviewed, Reports reviewed - chest x-ray with right rib series: No rib fracture, no rib fracture, no pneumothorax. Discharge - Discharge Clinical Impression: Contusion of rib on right side Qualifiers: Encounter type: initial encounter Qualified Code(s): S20.211A - Contusion of right front wall of thorax, initial encounter Fall Qualifiers: Encounter type: initial encounter Qualified Code(s): W19.XXXA - Unspecified fall, initial encounter Condition: Good Disposition: HOME, SELF-CARE Instructions: Ice Packs ([facility]), Oral Narcotic Medication ([facility]) Additional Instructions: You were seen in the emergency department this morning with a contusion to your right rib cage. Please use cold compress to the area of pain, discontinue heating pad. Take the medications of pain tramadol, you can still use Tylenol and continue your muscle relaxant. Please follow-up with your doctor as needed. If your symptoms are worsening or if you have other concerns you may return to the emergency department for further evaluation and treatment. HOME CARE INSTRUCTIONS & INFORMATION: Thank you for choosing us for your medical needs. We hope you're satisfied with the care you received. After you leave, you must properly care for your problem and, at the same time, observe its progress. Any condition can change. Some illnesses can change rapidly over hours or days. If your condition worsens, return to the Emergency Department or see your physician promptly. ABOUT YOUR X-RAYS AND EKG'S: If you had an EKG or X-rays taken, they have been read by the Emergency Physician. The X-rays and EKG's will also be read by a Radiologist or [facility] within 24 hours. If discrepancies are noted, you will be notified by telephone. Please be certain the ED has a correct telephone number & address where you can be reached. Also, realize that some fractures or abnormalities do not show up on initial X-rays. If your symptoms continue, see your physician. ABOUT YOUR LABORATORY TEST: If you had laboratory tests, the results have been reviewed by the Emergency Physician. Some test results (for example cultures) may not be available for several days. You will be contacted if any test result shows you need additional treatment. Please be certain the ED has a correct telephone number and address where you can be reached. ABOUT YOUR MEDICATIONS: You will receive instructions on how to take your medicine on the prescription label you receive. Additional information may be provided by the Pharmacy. If you have questions afterwards, call the ED for clarification or further instructions. Some prescribed medications may cause drowsiness. Do not perform tasks such as driving a car or operating machinery without consulting your Pharmacist. If you feel you need a refill of pain medication, your condition will need re-evaluation. Please do not call for a refill of any medication. ABOUT YOUR SIGNATURE: Signature of this document acknowledges to followin. Understanding that you received emergency treatment and that you may be released before al medical problems are known or treated. Please be certain the ED has a correct phone number & address where you can be reached. 2. Acknowledgement that you will arrange for follow-up care as recommended. 3. Authorization for the Emergency Physician to provide information to your follow-up Physician in order to maximize your care. AT ANY TIME, IF YOUR SYMPTOMS CHANGE SIGNIFICANTLY OR WORSEN OR YOU DEVELOP NEW SYMPTOMS, RETURN TO THE EMERGENCY DEPARTMENT IMMEDIATELY FOR RE-EVALUATION. OUR GOAL IS TO PROVIDE EXCELLENT MEDICAL CARE! WE HOPE THAT WE HAVE MET YOUR EXPECTATIONS DURING YOUR EMERGENCY DEPARTMENT VISIT AND THAT YOU FEEL YOU HAVE RECEIVED EXCELLENT CARE! Prescriptions: Tramadol HCl [Ultram 50 mg Tablet] 50 mg PO Q4HP PRN #12 tab PRN Reason: For Pain Scale 3-5 Referrals: NAZARIO SNELL NP [Primary Care Provider] - Follow up as needed
--- NOTE | 2019-12-12 07:30 | RADIOLOGY REPORT (SQ) ---
EXAM DESCRIPTION: XR RIBS UNILATERAL WITH CHEST COMPLETED DATE/TME: 12/12/2019 06:39 CLINICAL HISTORY: 64 years Female, Right rib cage injury COMPARISON: None. NUMBER OF VIEWS/TECHNIQUE: 4 FINDINGS: No displaced rib fracture. No pneumothorax. No acute cardiopulmonary findings. Mild osteoarthritis. IMPRESSION: No acute findings.
[2019-12-12] MEDS ORDERED: MORPHINE SULFATE 10 MG/ML INJ IV ONE (07:41)
== END 2019-12-12 08:12 | disposition home or self-care (01) ==
LOC: ER 06:12
DX: S20.211A Contusion of right front wall of thorax, initial encounter (principal); W19.XXXA Unspecified fall, initial encounter; Y92.002 Bathroom of unspecified non-institutional (private) residence as the place of occurrence of the external cause; I10 Essential (primary) hypertension; E11.9 Type 2 diabetes mellitus without complications; Z87.891 Personal history of nicotine dependence; Z88.2 Allergy status to sulfonamides
CPT/HCPCS: 99283; 96374; 71101; J1885; J2270; J2060